=== PATIENT | female | born 1935 | race Caucasian/White ===

== ENCOUNTER 2018-05-09 13:28 | Emergency (ER) | payer MEDICARE, SELFPAY ==
[2018-05-09 13:35] VITALS: BP 134/54; PULSE 85; RESP 15; TEMP 37.3; O2SAT 97; BMI 19.6
--- NOTE | 2018-05-09 13:36 | ED_ITS ---
HPI - Extremity Injury (Lower) <WALDO Diana - Last Filed: 05/09/18 22:16> General Chief Complaint: Extremity Injury, Lower Stated Complaint: POSSIBLE INFECTION OF LEFT LEG Time Seen by Provider: 05/09/18 13:36 Source: patient Mode of arrival: ambulatory Limitations: no limitations History of Present Illness HPI Narrative: 83-year-old female here for complaint of pain and redness to her left knee and her left ankle for the past 3 days. She denies any trauma to the area. She states that the pain started after she went to the grocery store and was walking on them. She denies any shortness of breath no chest pain. She denies any history of having any clots. She reports increased pain with ambulation and weight-bearing. No fevers no chills. She denies any other concerns or complaints at this time. Related Data Home Medications Medication Instructions Recorded Confirmed ASPIRIN (Aspirin Low Dose) 81 mg PO #0 02/19/08 05/09/18 MULTIVITAMIN (Multivitamin 0 PO * DOSE/FREQUENCY #0 02/19/08 05/09/18 -) VITAMIN C - 0 PO * DOSE/FREQUENCY #0 02/19/08 05/09/18 (VITAMIN C) Previous Rx's Medication Instructions Recorded prednisone 40 mg PO DAILY #8 tab 05/09/18 Allergies Allergy/AdvReac Type Severity Reaction Status Date / Time Sulfa (Sulfonamide Allergy Unknown Verified 05/09/18 13:35 Antibiotics) Review of Systems <WALDO Diana - Last Filed: 05/09/18 22:16> Constitutional Denies chills, Denies fever(s), Denies lethargy and Denies weakness Eyes Denies change in vision, Denies eye discharge, Denies irritation and Denies loss of vision ENT Ears, Nose, Mouth, and Throat: Denies change in voice, Denies neck pain and Denies sore throat Cardiovascular Denies chest pain, Denies irregular heart rhythm, Denies lightheadedness, Denies palpitations, Denies dyspnea, Denies dyspnea on exertion and Denies orthopnea Respiratory Denies cough, Denies dyspnea, Denies dyspnea on exertion and Denies wheezing Gastrointestinal Gastrointestinal: Denies abdominal pain, Denies change in bowel habits, Denies diarrhea, Denies nausea and Denies vomiting Genitourinary Denies hematuria, Denies flank pain, Denies urinary incontinence and Denies urinary urgency Musculoskeletal Denies neck pain Comments: Left knee and ankle pain and swelling and redness Integumentary/Breasts Denies pruritus, Denies erythema, Denies rash and Denies wounds Neurologic Denies loss of vision and Denies weakness Endocrine Denies palpitations Allergic/Immunologic Denies wheezing Exam <WALDO Diana - Last Filed: 05/09/18 22:16> Initial Vital Signs Initial Vital Signs: Vital Signs Temperature 99.1 F 05/09/18 13:35 Pulse Rate 85 05/09/18 13:35 Respiratory Rate 15 05/09/18 13:35 Blood Pressure 134/54 H 05/09/18 13:35 Pulse Oximetry 97 05/09/18 13:35 Const General: cooperative and well developed Nutritional Appearance: well nourished Orientation: alert, awake, oriented x3 and not confused HENMT Mouth: oral mucosae normal and moist mucous membranes Eyes Conjunctivae: conjunctivae normal Sclera: sclerae normal Pupils: PERRL EOM: EOM intact bilaterally Resp Effort & Inspection: normal respiratory effort, able to speak in complete sentences, no respiratory distress and no use of accessory muscles Auscultation: clear to auscultation bilaterally, no rales, no rhonchi and no wheezes Cardio Rate: regular rate Rhythm: regular rhythm Heart Sounds: no click, no gallops, no murmurs and no rubs Skin General: no rashes or lesions noted, No jaundice and No petechiae Neuro General: alert, oriented x3, gait normal and no focal motor deficits Speech: speech normal Extrem Other: Swelling to left knee and to left ankle. Slight amount of erythema to the area. Slight amount of warmth on palpation to the left knee and left ankle. Distal sensation is intact. Distal range of motion is intact. Distal pulses are intact. <Lenny Damico DO - Last Filed: 05/10/18 07:16> Initial Vital Signs Initial Vital Signs: Vital Signs Temperature 99.1 F 05/09/18 13:35 Pulse Rate 85 05/09/18 13:35 Respiratory Rate 15 05/09/18 13:35 Blood Pressure 134/54 H 05/09/18 13:35 Pulse Oximetry 97 05/09/18 13:35 Course <WALDO Diana - Last Filed: 05/09/18 22:16> Orders Ordered: ED Orders 05/09/18 14:05 periph venous low extrem lt Stat 05/09/18 14:43 C-Reactive Protein Quant Stat Complete Blood Count AUTO DIFF Stat Comprehensive Metabolic Panel Stat Erythrocyte Sedimentation Rate Stat Procalcitonin Stat Uric Acid Stat Vital Signs - 8 hr 05/09/18 17:05 Pulse Rate 77 Respiratory Rate 20 Blood Pressure 107/76 Pulse Oximetry 98 <Lenny Damico DO - Last Filed: 05/10/18 07:16> Orders Ordered: ED Orders 05/09/18 14:05 periph venous low extrem lt Stat 05/09/18 14:43 C-Reactive Protein Quant Stat Complete Blood Count AUTO DIFF Stat Comprehensive Metabolic Panel Stat Erythrocyte Sedimentation Rate Stat Procalcitonin Stat Uric Acid Stat Vital Signs - 8 hr 05/09/18 17:05 Pulse Rate 77 Respiratory Rate 20 Blood Pressure 107/76 Pulse Oximetry 98 MDM - Extremity Injury (Lower) <WALDO Diana - Last Filed: 05/09/18 22:16> Lab Data Result diagrams: 05/09/18 14:43 05/09/18 14:43 Lab Results 05/09/18 05/09/18 05/09/18 Range/Units 14:43 14:43 14:43 WBC 11.3 H (4.5-11.0) X10^3/uL RBC 3.83 L (4.0-5.2) X10^6/uL Hgb 11.6 L (12.0-16.0) g/dL Hct 34.0 L (36-46) % MCV 88.8 (80-100) fL MCH 30.3 (26-34) PG MCHC 34.1 (30-36) % RDW 13.9 (11.6-14.8) % Plt Count 246 (150-400) X10^3/uL Neut % (Auto) 75.0 (50-75) % Lymph % (Auto) 9.1 L (25-40) % [place] % (Auto) 15.1 H (3-14) % Eos % (Auto) 0.3 L (2-4) % Baso % (Auto) 0.5 (0-2) % Neut # (Auto) 8400 H (5694-2571) /uL ESR 53 H (0-20) MM/HR Sodium 135 L (137-145) mmol/L Potassium 4.3 (3.4-5.1) mmol/L Chloride 99 (98-107) mmol/L Carbon Dioxide 28 (22-32) mmol/L BUN 17 (7-17) mg/dL Creatinine 0.50 L (0.52-1.04) mg/dL Estimated GFR > 60.0 (>60) mL/min BUN/Creatinine Ratio 34.0 H (6-22) Glucose 102 (80-110) mg/dL Uric Acid 3.0 (2.5-6.2) mg/dL Calcium 9.4 (8.4-10.2) mg/dL Total Bilirubin 1.2 (0.2-1.3) mg/dL AST 41 H (14-36) IU/L ALT 45 (9-52) IU/L Alkaline Phosphatase 162 H (38-126) U/L C-Reactive Protein 22.0 H (<1.0) mg/dL Total Protein 6.9 (6.3-8.2) g/dL Albumin 4.0 (3.5-5.0) g/dL Globulin 2.9 (1.7-4.1) g/dL Albumin/Globulin Ratio 1.4 (1.0-2.8) Procalcitonin 0.18 (<0.5) ng/mL Imaging Data Venous US: Radiologist's impression: PROCEDURE: US PERIPH VENOUS LOW EXTREM LT INDICATIONS: Redness and swelling to left ankle and knee TECHNIQUE: Real-time imaging, as well as color and pulse Doppler interrogation, were performed of the lower extremity deep veins from the inguinal ligament to the popliteal fossa. COMPARISON: None. FINDINGS: The deep veins are normally compressible, and free of intraluminal thrombus. Color and pulse Doppler demonstrate normal phasic intraluminal flow. There is normal augmentation response to distal compression maneuver. IMPRESSION: 1. Negative for DVT. 2. Small Chamberlain's cyst measuring 1.7 x 3.1 x 3.9 cm. Dictated by: Michael Fitzpatrick M.D. on 05/09/2018 at 15:25 Approved by: Michael Fitzpatrick M.D. on 05/09/2018 at 15:26 [facility] Narrative Medical decision making narrative: Ultrasound the left lower extremity was obtained was negative for any DVTs. CRP and ESR were elevated. White count was slightly elevated. Uric acid was obtained was negative. Procalcitonin was obtained was negative. Laboratory results show mild anemia otherwise are unremarkable. Orthopedics Dr. downs was called he evaluated patient does not believe that patient is infectious at this point and that this is a arthritic exacerbation. [id number] Tylenol or Motrin as needed for any discomfort. She is placed on a short course of prednisone for anti-inflammatory effects. Follow up with primary care provider next week. For any worsening symptoms return to the emergency room. <Lenny Damico, DO - Last Filed: 05/10/18 07:16> Lab Data Lab Results 05/09/18 05/09/18 05/09/18 Range/Units 14:43 14:43 14:43 WBC 11.3 H (4.5-11.0) X10^3/uL RBC 3.83 L (4.0-5.2) X10^6/uL Hgb 11.6 L (12.0-16.0) g/dL Hct 34.0 L (36-46) % MCV 88.8 (80-100) fL MCH 30.3 (26-34) PG MCHC 34.1 (30-36) % RDW 13.9 (11.6-14.8) % Plt Count 246 (150-400) X10^3/uL Neut % (Auto) 75.0 (50-75) % Lymph % (Auto) 9.1 L (25-40) % [place] % (Auto) 15.1 H (3-14) % Eos % (Auto) 0.3 L (2-4) % Baso % (Auto) 0.5 (0-2) % Neut # (Auto) 8400 H (3815-3259) /uL ESR 53 H (0-20) MM/HR Sodium 135 L (137-145) mmol/L Potassium 4.3 (3.4-5.1) mmol/L Chloride 99 (98-107) mmol/L Carbon Dioxide 28 (22-32) mmol/L BUN 17 (7-17) mg/dL Creatinine 0.50 L (0.52-1.04) mg/dL Estimated GFR > 60.0 (>60) mL/min BUN/Creatinine Ratio 34.0 H (6-22) Glucose 102 (80-110) mg/dL Uric Acid 3.0 (2.5-6.2) mg/dL Calcium 9.4 (8.4-10.2) mg/dL Total Bilirubin 1.2 (0.2-1.3) mg/dL AST 41 H (14-36) IU/L ALT 45 (9-52) IU/L Alkaline Phosphatase 162 H (38-126) U/L C-Reactive Protein 22.0 H (<1.0) mg/dL Total Protein 6.9 (6.3-8.2) g/dL Albumin 4.0 (3.5-5.0) g/dL Globulin 2.9 (1.7-4.1) g/dL Albumin/Globulin Ratio 1.4 (1.0-2.8) Procalcitonin 0.18 (<0.5) ng/mL Discharge Plan Departure Patient Disposition: Home Clinical Impression: Pain in left knee, Acute left ankle pain Discharge Date/Time: 05/09/18 17:06 Interventions: ED Discharge Assessment Last Done: 05/09/18 17:05 Instructions: DI for Osteoarthritis Activity Restrictions/Additional Instructions: Laboratory results show mild anemia. Ultrasound of the left lower extremity was obtained was negative for clot. Signs and symptoms present as arthritic inflammation into the left knee and left ankle. You are placed on a short course of prednisone for anti-inflammatory affects use as directed. Follow up with primary care provider next week for further evaluation of pain into the left knee and ankle and also for anemia. For any worsening symptoms return to the emergency room. Prescriptions: New prednisone 20 mg tablet 40 mg PO DAILY Qty: 8 RF: 0 No Action ASPIRIN (Aspirin Low Dose) 81 mg PO Qty: 0 RF: 0 MULTIVITAMIN (Multivitamin -) PO * [place] DOSE/FREQUENCY Qty: 0 RF: 0 VITAMIN C - (VITAMIN C) PO * [place] DOSE/FREQUENCY Qty: 0 RF: 0 Referrals: Whitney Geiger PA-C [Primary Care Provider] - <Lenny Damico DO - Last Filed: 05/10/18 07:16> Cosign ED Attending Nilda Attestation: I was available for consultation during this patient's emergency department encounter
--- NOTE | 2018-05-09 14:05 | DI.US.S_ITS ---
PROCEDURE: US PERIPH VENOUS LOW EXTREM LT INDICATIONS: Redness and swelling to left ankle and knee TECHNIQUE: Real-time imaging, as well as color and pulse Doppler interrogation, were performed of the lower extremity deep veins from the inguinal ligament to the popliteal fossa. COMPARISON: None. FINDINGS: The deep veins are normally compressible, and free of intraluminal thrombus. Color and pulse Doppler demonstrate normal phasic intraluminal flow. There is normal augmentation response to distal compression maneuver. IMPRESSION: 1. Negative for DVT. 2. Small Chamberlain's cyst measuring 1.7 x 3.1 x 3.9 cm. Dictated by: Michael Fitzpatrick M.D. on 05/09/2018 at 15:25 Approved by: Michael Fitzpatrick M.D. on 05/09/2018 at 15:26
[2018-05-09 14:55] LABS: Add Manual Diff / Slide Review NO; Basophils Percent Auto 0.5 % (0-2); Eosinophils Percent Auto 0.3 % (2-4); Hemoglobin 11.6 g/dL (12.0-16.0); Lymphocytes Percent Auto 9.1 % (25-40); Mean Corpuscular HGB Conc 34.1 % (30-36); Mean Corpuscular Hemoglobin 30.3 PG (26-34); Mean Corpuscular Volume 88.8 fL (80-100); Monocytes Percent Auto 15.1 % (3-14); Neutrophils Absolute Auto 8400 /uL (3000-5900); Platelet Count 246 X10^3/uL (150-400); Red Blood Cell Count 3.83 X10^6/uL (4.0-5.2); Red Cell Distribution Width 13.9 % (11.6-14.8); White Blood Cell Count 11.3 X10^3/uL (4.5-11.0)
[2018-05-09 15:12] LABS: Alanine Aminotransferase 45 IU/L (9-52); Albumin Globulin Ratio 1.4 (1.0-2.8); Alkaline Phosphatase 162 U/L (38-126); Aspartate Aminotransferase 41 IU/L (14-36); Bilirubin Total 1.2 mg/dL (0.2-1.3); Blood Urea Nitrogen 17 mg/dL (7-17); Calcium 9.4 mg/dL (8.4-10.2); Carbon Dioxide 28 mmol/L (22-32); Chloride 99 mmol/L (98-107); Estimated Glomerular Filt Rate > 60.0 mL/min (>60); Globulin 2.9 g/dL (1.7-4.1); Glucose 102 mg/dL (80-110); HEMOLYSIS < 15 (0-50); Potassium 4.3 mmol/L (3.4-5.1); Sodium 135 mmol/L (137-145); Total Protein 6.9 g/dL (6.3-8.2)
[2018-05-09 15:16] LABS: Erythrocyte Sedimentation Rate 53 MM/HR (0-20)
[2018-05-09 15:25] LABS: Procalcitonin 0.18 ng/mL (<0.5)
[2018-05-09 17:05] VITALS: BP 107/76; PULSE 77; RESP 20; O2SAT 98
--- NOTE | 2018-05-09 18:53 | P.CONS_ITS ---
History of Present Illness Date Patient Seen: 05/09/18 Time Patient Seen: 17:30 Chief complaint: POSSIBLE INFECTION OF LEFT LEG Reason for consult: Left knee and ankle pain Requesting provider: Robert Brown Narrative: 83-year-old female presented with four-day progressive pain in the left knee and ankle. She came to urgent care today because it was swollen and so painful she could not walk on it. She denies any trauma. No recent fever or infections. She was seen at urgent care and transferred to the emergency room. As she has been laying on a stretcher all day, at this point she reports that the swelling is much better and the pain in the knee is much better as well as the ankle. However, it still hurts to move the ankle or to walk on it. [facility] Medical History Osteoarthritis (Acute) Social History Smoking Status: Never smoker Meds Home Medications Medication Instructions Recorded Confirmed Type ASPIRIN (Aspirin Low Dose) 81 mg PO #0 /12/2305/09/18 History MULTIVITAMIN (Multivitamin 0 PO * [place] DOSE/FREQUENCY #0 02/19/08 05/09/18 History -) VITAMIN C - 0 PO * [place] DOSE/FREQUENCY #0 02/19/08 05/09/18 History (VITAMIN C) prednisone 40 mg PO DAILY #8 tab 05/09/18 Rx Allergies Allergy/AdvReac Type Severity Reaction Status Date / Time Sulfa (Sulfonamide Allergy Unknown Verified 05/09/18 13:35 Antibiotics) Review of Systems Constitutional Constitutional: Denies chills, Denies excessive sweating and Denies fever(s) Respiratory Respiratory: Denies cough Gastrointestinal Comments: no diarrhea Genitourinary Comments: no urinary pain Musculoskeletal Musculoskeletal: Reports system reviewed; no additional complaints, except as documented Neurologic Neurologic: Denies confusion Psychiatric Psychiatric: Denies confusion Endocrine Endocrine: Denies excessive sweating Hematologic/Lymphatic Hematologic/Lymphatic: Denies easy bleeding Exam Vital Signs (past 8 hours): - 05/09/18 13:35 05/09/18 17:05 Temperature 99.1 F Pulse Rate 85 77 Respiratory Rate 15 20 Blood Pressure 134/54 H 107/76 Pulse Oximetry 97 98 Oxygen Delivery Method Room Air Const Orientation: alert and oriented x3 Extrem Other: Left knee-no erythema or induration. Moderate swelling over the medial joint line. Tender over the medial joint line, nontender lateral joint line. 45 degree comfortable range of motion. Left ankle-minimal erythema and swelling over the dorsum of the foot. Able to go through a slow 30 degree range of motion of the ankle without difficulty. Tender over the tibiotalar joint. 1+ distal pulse easily wiggles toes. Objective Labs Result Diagrams: 05/09/18 14:43 05/09/18 14:43 Labs: Laboratory Results - last 24 hr 05/09/18 05/09/18 05/09/18 14:43 14:43 14:43 WBC 11.3 H RBC 3.83 L Hgb 11.6 L Hct 34.0 L MCV 88.8 MCH 30.3 MCHC 34.1 RDW 13.9 Plt Count 246 Neut % (Auto) 75.0 Lymph % (Auto) 9.1 L [place] % (Auto) 15.1 H Eos % (Auto) 0.3 L Baso % (Auto) 0.5 Neut # (Auto) 8400 H ESR 53 H Sodium 135 L Potassium 4.3 Chloride 99 Carbon Dioxide 28 BUN 17 Creatinine 0.50 L Estimated GFR > 60.0 BUN/Creatinine Ratio 34.0 H Glucose 102 Uric Acid 3.0 Calcium 9.4 Total Bilirubin 1.2 AST 41 H ALT 45 Alkaline Phosphatase 162 H C-Reactive Protein 22.0 H Total Protein 6.9 Albumin 4.0 Globulin 2.9 Albumin/Globulin Ratio 1.4 Procalcitonin 0.18 Assessment & Plan Plan: Assessment/Plan Narrative: Her CRP and sedimentation rate are elevated but her procalcitonin is normal. She has comfortable range of motion of both joints and no significant erythema or swelling. I am doubtful this is a septic joint, I am more concerned with degenerative arthritis. However, I thought it would be prudent to try to aspirate both her ankle and knee joint to see if there is any fluid that could be sent off. Procedure 1, under sterile conditions, a 22 gauge needle was inserted through the medial joint line into the knee joint. This was a dry aspirate. Procedure 2, under sterile conditions, a 22 gauge needle was inserted in the anteromedial ankle joint. This also was a dry aspirate. As she had dry aspirates and clinically does not really appear to have an infected joint, I think this is more of an arthritic flare up and recommended placing her on prednisone for now. She will return if she develops fever or increasing pain or swelling.
== END 2018-05-09 17:06 | disposition home or self-care (01) ==
PROVIDERS: Emergency Provider Nurse Practitioner Family; Family Provider Physician Assistant Medical; PCP Physician Assistant Medical
DX: M25.562 Pain in left knee (principal); M25.572 Pain in left ankle and joints of left foot
CPT/HCPCS: 36415; 80053; 84145; 84550; 85025; 85651; 86140; 93971; 99282; 99284

== ENCOUNTER → 2020-12-23 13:03 | Outpatient (CLI) | payer MEDICARE, SELFPAY ==
[2020-12-23] MEDS: COVID-19 VACC, Ad26(JANSSEN)/PF 0.5 ML IM (13:11)
== END ==
PROVIDERS: Family Provider Physician Assistant Medical; PCP Physician Assistant Medical; Visit Provider Internal Medicine
DX: Z23 Encounter for immunization (principal)
CPT/HCPCS: 0031A; 91303

== ENCOUNTER 2022-11-07 18:31 | Inpatient (IN) | payer MEDICARE, SELFPAY ==
[2022-11-07] VITALS (15 sets, daily range): BP systolic 109–138; BP diastolic 56–74; PULSE 85–94; RESP 20; TEMP 36.6–37.6; O2SAT 96–98; BMI 20.7
--- NOTE | 2022-11-07 18:45 | DI.RAD.S_ITS ---
PROCEDURE: XR CHEST 1V INDICATIONS: suspected sepsis TECHNIQUE: One view of the chest was acquired. COMPARISON: None. FINDINGS: Surgical changes and devices: None. Lungs and pleura: Lungs are clear. No pleural effusions or pneumothorax. Mediastinum: Mediastinal contours appear normal. Heart size is normal. Bones and chest wall: Rightward curvature of the thoracic spine. No suspicious bony lesions. Overlying soft tissues appear unremarkable. IMPRESSION: No acute cardiopulmonary abnormality. Dictated by: Romero Downs M.D. on 11/07/2022 at 19:34 Approved by: Romero Downs M.D. on 11/07/2022 at 19:35
--- NOTE | 2022-11-07 18:50 | DI.CT.S_ITS ---
PROCEDURE: CT HEAD/BRAIN WO CON INDICATIONS: altered mental status TECHNIQUE: Noncontrast 4.5 mm thick angled axial sections acquired from the foramen magnum to the vertex, with coronal and sagittal reformats. For radiation dose reduction, the following was used: automated exposure control, adjustment of mA and/or kV according to patient size. COMPARISON: None. FINDINGS: Image quality: Excellent. CSF spaces: Basal cisterns are patent. No extra-axial fluid collections. The ventricles are symmetric in size and shape. Brain: No intracranial bleeds or masses. There is cerebral volume loss for age, with resultant ventricular and sulcal prominence. There are periventricular and deep white matter chronic small vessel ischemic changes. There is intracranial internal carotid artery atherosclerosis. There is a cortical hypodensity in the right parietal a simple lobe consistent with watershed infarction between the right MCA and [employer] territory. Skull and face: Calvarium and visualized facial bones appear intact, without suspicious lesions. Sinuses: Visualized sinuses and mastoids are clear. IMPRESSION: 1. 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 2. Diffuse atrophy and microvascular ischemic disease. Findings were discussed with Dr. Damico. Dictated by: Romero Downs M.D. on 11/07/2022 at 19:35 Approved by: Romero Downs M.D. on 11/07/2022 at 19:40
[2022-11-07 19:07] LABS: Add Manual Diff / Slide Review NO; Basophils Absolute Auto 0 /uL (0-100); Basophils Percent Auto 0.2 % (0-2); Eosinophils Absolute Auto 0 /uL (0-450); Hemoglobin 12.8 g/dL (12.0-16.0); Lymphocytes Absolute Auto 700 /uL (1100-4500); Lymphocytes Percent Auto 4.4 % (25-40); Mean Corpuscular HGB Conc 32.7 % (30-36); Mean Corpuscular Hemoglobin 28.8 PG (26-34); Monocytes Absolute Auto 2000 /uL (0-900); Monocytes Percent Auto 11.7 % (3-14); Neutrophils Absolute Auto 14300 /uL (1500-7000); Neutrophils Percent Auto 83.7 % (50-75); Platelet Count 330 X10^3/uL (150-400); Red Blood Cell Count 4.43 X10^6/uL (4.0-5.2); Red Cell Distribution Width 14.6 % (11.6-14.8); White Blood Cell Count 17.1 X10^3/uL (4.5-11.0)
[2022-11-07 19:17] LABS: Alanine Aminotransferase 26 IU/L (<35); Albumin 4.2 g/dL (3.5-5.0); Albumin Globulin Ratio 1.5 (1.0-2.8); Alkaline Phosphatase 127 U/L (38-126); Aspartate Aminotransferase 50 IU/L (14-36); BUN Creatinine Ratio 39.2 (6-22); Bilirubin Total 1.2 mg/dL (0.2-1.3); Blood Urea Nitrogen 20 mg/dL (7-17); Carbon Dioxide 23 mmol/L (22-32); Chloride 105 mmol/L (98-107); Estimated Glomerular Filt Rate > 60 mL/min (>60); Globulin 2.8 g/dL (1.7-4.1); Glucose 134 mg/dL (80-110); HEMOLYSIS < 15 (0-50); Lipase 60 U/L (23-300); Potassium 3.7 mmol/L (3.4-5.1); Sodium 136 mmol/L (137-145)
[2022-11-07 19:18] LABS: Lactate (Lactic Acid) 1.5 mmol/L (0.7-2.1)
--- NOTE | 2022-11-07 19:55 | ED.FALL ---
HPI - Fall General Chief Complaint: Fall Stated Complaint: Found on floor, possible fall, back pain Time Seen by Provider: 11/07/22 18:37 Source: patient and EMS Mode of arrival: EMS Limitations: altered mental status History of Present Illness HPI Narrative: Patient is an 87-year-old female who arrives by EMS for evaluation of altered mental status, being found on the floor. We are unable to determine when her last known normal was. It was reported that friends who check on her often came over to her house and found her lying on the floor. This was after she did not arrived to a jew function. To me the patient reports no specific complaints. She reports no neck pain no back pain no arm leg hip abdominal pain or headache. According to her home medication list in the EMR patient is not on blood thinners. There is no signs of trauma. Reports from nursing staff that they were told that the patient potentially has had a rectal prolapse and also a bladder/uterine prolapse. It is reported that there was a concern for urinary tract infection per nursing staff. Was also reported that the patient at baseline lives on her own and can take care of herself so her mental status upon presentation is a change. Related Data Home Medications Medication Instructions Recorded Confirmed ASPIRIN (Aspirin Low Dose) 81 mg PO ##0 02/19/08 05/09/18 MULTIVITAMIN (Multivitamin 0 PO * DOSE/FREQUENCY ##0 02/19/08 05/09/18 -) VITAMIN C - 0 PO * DOSE/FREQUENCY ##0 02/19/08 05/09/18 (VITAMIN C) Previous Rx's Medication Instructions Recorded prednisone 20 mg tablet 40 mg PO DAILY #8 tabs 05/09/18 Allergies Allergy/AdvReac Type Severity Reaction Status Date / Time Sulfa (Sulfonamide Allergy Unknown Verified 05/09/18 13:35 Antibiotics) Review of Systems Review of Systems Narrative: Patient denies chest pain, headache, shortness of breath, abdominal pain, nausea vomiting, urinary symptoms, skin rashes. Patient History Medical History History of chronic urinary tract infection History of cystocele History of uterine prolapse Osteoarthritis Urinary incontinence concurrent with and due to female genital prolapse Surgical History (Updated 11/08/22 @ 00:11 by AYAAN Harry) History of hysterectomy Social History Smoking Status: Never smoker Smoking Status: Never smoker Exam Initial Vital Signs Initial Vital Signs: Vital Signs Pulse Rate 90 11/07/22 18:36 Pulse Oximetry 98 11/07/22 18:36 Const General: comfortable and No ill appearing HENMT Head: normal to inspection and normocephalic Eyes Pupils: PERRL Other: Patient can overcome and look to the left but has obvious difficulty. Resp Effort & Inspection: normal respiratory effort Auscultation: clear to auscultation bilaterally Cardio Rate: regular rate Rhythm: regular rhythm GI Inspection: normal to inspection Skin General: no rashes or lesions noted Neuro Other: Patient is alert to person and place and date but does not know the ear and obviously has confusion about why she is here. Does not remember falling. Patient has no dysarthria. No aphasia. [id number] with right and left upper extremities is unremarkable. No drift with the upper extremities. No weakness with lower extremities and heel to hernandez is unremarkable. Patient has obvious difficulty with looking to the left. Extrem General: normal to inspection and capillary refill normal Psych Appearance: grossly normal and well kempt Scores GCS [place] coma scale eye opening: Spontaneous [place] coma scale verbal response: Confused Jennifer coma scale motor response: Obey commands [place] coma scale total score: 14 NIH Stroke Scale Level of Conciousness: Alert, keenly responsive Ask month/age: Answers one question correctly, intubated follow commands Open/close eyes, close hand: Performs both tasks correctly Best gaze horizontal: Partial gaze palsy, can be overcome by finger tracking, head turning Visual billingsley: Partial hemianopia (Although I am not convinced patient knew what I was asking her to do) Facial palsy: Normal symetrical movement Left arm drift: No drift for full 10 sec Right arm drift: No drift for full 10 sec Left leg drift: No drift for full 5 sec Right leg drift: No drift for full 5 sec Limb ataxia: Absent Sensory on face/arms/legs: Normal, no sensory loss Best language: No aphasia, normal Dysarthria: Normal Extinction or inattention: No abnormality Total NIH Stroke scale score: 3 Course Orders Ordered: ED Orders 11/07/22 18:45 XR chest 1V Stat EKG-12 Lead Stat RT Consult Eval and Treat NOW 11/07/22 18:50 CT head/brain wo con Stat Complete Blood Count AUTO DIFF Stat Comprehensive Metabolic Panel Stat Lactate (Lactic Acid) Stat Lipase Stat Procalcitonin Stat 11/07/22 19:26 COVID19 -Nasal RAPID/Pre-Proc Stat Urinalysis and Microscopic Stat Urine Culture Stat 11/07/22 19:40 Blood Culture Stat Acetaminophen (Acetaminophen 325 Mg Tablet) 650 mg PO Q6H PRN PRN Reason: Fever/Mild Pain (1-3) Al Hydrox/Mg Hydrox/Simethicone (Mag Hydrox/Alum/Simeth 30 Ml Udc) 30 ml PO Q6HR PRN PRN Reason: Dyspepsia Atorvastatin Calcium (Atorvastatin 20 Mg Tablet) 20 mg PO BEDTIME [facility] Last Admin: 11/07/22 22:37 Dose: Not Given Documented By: BS Calcium Carbonate (Calcium Carbonate 500 Mg Tab) 1,000 mg PO Q4HR PRN PRN Reason: Dyspepsia Sodium Chloride (Normal Saline 0.9%) 1,000 mls @ 60 mls/hr IV CONT [facility] Last Admin: 11/07/22 22:30 Dose: 60 mls/hr Documented By: DIALLO Naloxone HCl (Naloxone 0.4 Mg/Ml Vial) 0.2 mg IV Q2MIN PRN PRN Reason: Opiate Reversal Ondansetron HCl (Ondansetron 4 Mg/2 Ml Inj) 4 mg IV Q8HR PRN PRN Reason: Nausea And Vomiting Sennosides (Sennosides 8.6 Mg Tablet) 17.2 mg PO BEDTIME [facility] Last Admin: 11/07/22 22:37 Dose: Not Given Documented By: DIALLO Discontinued Medications Sodium Chloride (Normal Saline 0.9%) 1,000 mls @ 1,000 mls/hr IV BOLUS ONE Stop: 11/07/22 19:44 Last Infusion: 11/07/22 21:36 Dose: 0 mls/hr Documented By: Admin: 11/07/22 20:01 Dose: 1,000 mls/hr Documented By: DIALLO Ceftriaxone Sodium 1,000 mg/ (Sodium Chloride) 100 mls @ 200 mls/hr IV NOW ONE Stop: 11/07/22 19:12 Last Infusion: 11/07/22 21:36 Dose: 0 mls/hr Documented By: Admin: 11/07/22 20:01 Dose: 200 mls/hr Documented By: DIALLO Ceftriaxone Sodium 1,000 mg/ (Sodium Chloride) 100 mls @ 200 mls/hr IV NOW ONE Stop: 11/07/22 21:37 Last Infusion: 11/07/22 23:04 Dose: 0 mls/hr Documented By: Admin: 11/07/22 22:10 Dose: 200 mls/hr Documented By: DIALLO Vital Signs Vital signs: Vital Signs - 8 hr 11/07/22 19:08 11/07/22 18:36 11/07/22 18:37 Temperature 98 F Pulse Rate 90 90 91 H Respiratory Rate 20 Blood Pressure 126/74 Pulse Oximetry 98 98 96 Oxygen Delivery Method Room Air 11/07/22 18:37 11/07/22 19:04 11/07/22 19:37 Temperature Pulse Rate 85 89 Respiratory Rate Blood Pressure 126/74 Pulse Oximetry 96 98 Oxygen Delivery Method Room Air 11/07/22 19:41 11/07/22 19:41 11/07/22 20:00 Temperature Pulse Rate 87 86 Respiratory Rate Blood Pressure 138/68 Pulse Oximetry 98 98 Oxygen Delivery Method MDM - Fall Lab Data Attestation: I reviewed the patient's lab results. 11/07/22 18:50 11/07/22 18:50 Labs: Lab Results 11/07/22 11/07/22 11/07/22 Range/Units 18:50 18:50 18:50 WBC 17.1 H (4.5-11.0) X10^3/uL RBC 4.43 (4.0-5.2) X10^6/uL Hgb 12.8 (12.0-16.0) g/dL Hct 39.0 (36-46) % MCV 88.0 (80-100) fL MCH 28.8 (26-34) PG MCHC 32.7 (30-36) % RDW 14.6 (11.6-14.8) % Plt Count 330 (150-400) X10^3/uL Neut % (Auto) 83.7 H (50-75) % Lymph % (Auto) 4.4 L (25-40) % [place] % (Auto) 11.7 (3-14) % Eos % (Auto) 0.0 L (2-4) % Baso % (Auto) 0.2 (0-2) % Neut # (Auto) 55229 H (3884-2895) /uL Lymph # (Auto) 700 L (8542-9013) /uL [place] # (Auto) 2000 H (0-900) /uL Eos # (Auto) 0 (0-450) /uL Baso # (Auto) 0 (0-100) /uL Sodium 136 L (137-145) mmol/L Potassium 3.7 (3.4-5.1) mmol/L Chloride 105 (98-107) mmol/L Carbon Dioxide 23 (22-32) mmol/L BUN 20 H (7-17) mg/dL Creatinine 0.51 L (0.52-1.04) mg/dL Estimated GFR > 60 (>60) mL/min BUN/Creatinine Ratio 39.2 H (6-22) Glucose 134 H (80-110) mg/dL Hemoglobin A1c (4.0-6.0) % Lactate 1.5 (0.7-2.1) mmol/L Calcium 9.0 (8.4-10.2) mg/dL Magnesium (1.6-2.3) mg/dL Total Bilirubin 1.2 (0.2-1.3) mg/dL AST 50 H (14-36) IU/L ALT 26 (<35) IU/L Alkaline Phosphatase 127 H (38-126) U/L Troponin I (0.01-0.034) ng/mL NT-Pro-B Natriuret Pep (<450) pg/mL Total Protein 7.0 (6.3-8.2) g/dL Albumin 4.2 (3.5-5.0) g/dL Globulin 2.8 (1.7-4.1) g/dL Albumin/Globulin Ratio 1.5 (1.0-2.8) Lipase 60 (23-300) U/L Procalcitonin 0.10 (<0.5) ng/mL TSH (0.47-4.68) uIU/mL Urine Color Urine Appearance Urine pH (4.5-8.0) Ur Specific Hend[place] (1.000-1.035) Urine Protein (Negative) Urine Glucose (UA) (Negative) g/dL Urine Ketones (NEGATIVE) Urine Occult Blood (Negative) Urine Nitrate (Negative) Urine Bilirubin (NEGATIVE) Urine Urobilinogen (0.2) E.U./dL Ur Leukocyte Esterase (NEGATIVE) Urine RBC (0-5/HPF) Urine WBC (0-5/HPF) Ur Squamous Epith Cells (0-5/HPF) Amorphous Sediment Urine Bacteria (None) Urine Mucus (Negative) SARS-CoV-2 (PCR) (Negative) 11/07/22 11/07/22 11/07/22 Range/Units 18:50 18:50 18:50 WBC (4.5-11.0) X10^3/uL RBC (4.0-5.2) X10^6/uL Hgb (12.0-16.0) g/dL Hct (36-46) % MCV (80-100) fL MCH (26-34) PG MCHC (30-36) % RDW (11.6-14.8) % Plt Count (150-400) X10^3/uL Neut % (Auto) (50-75) % Lymph % (Auto) (25-40) % [place] % (Auto) (3-14) % Eos % (Auto) (2-4) % Baso % (Auto) (0-2) % Neut # (Auto) (9372-5959) /uL Lymph # (Auto) (3003-2886) /uL School[place] # (Auto) (0-900) /uL Eos # (Auto) (0-450) /uL Baso # (Auto) (0-100) /uL Sodium (137-145) mmol/L Potassium (3.4-5.1) mmol/L Chloride (98-107) mmol/L Carbon Dioxide (22-32) mmol/L BUN (7-17) mg/dL Creatinine (0.52-1.04) mg/dL Estimated GFR (>60) mL/min BUN/Creatinine Ratio (6-22) Glucose (80-110) mg/dL Hemoglobin A1c 5.4 (4.0-6.0) % Lactate (0.7-2.1) mmol/L Calcium (8.4-10.2) mg/dL Magnesium 2.1 (1.6-2.3) mg/dL Total Bilirubin (0.2-1.3) mg/dL AST (14-36) IU/L ALT (<35) IU/L Alkaline Phosphatase (38-126) U/L Troponin I (0.01-0.034) ng/mL NT-Pro-B Natriuret Pep 369 (<450) pg/mL Total Protein (6.3-8.2) g/dL Albumin (3.5-5.0) g/dL Globulin (1.7-4.1) g/dL Albumin/Globulin Ratio (1.0-2.8) Lipase (23-300) U/L Procalcitonin (<0.5) ng/mL TSH (0.47-4.68) uIU/mL Urine Color Urine Appearance Urine pH (4.5-8.0) Ur Specific [place] (1.000-1.035) Urine Protein (Negative) Urine Glucose (UA) (Negative) g/dL Urine Ketones (NEGATIVE) Urine Occult Blood (Negative) Urine Nitrate (Negative) Urine Bilirubin (NEGATIVE) Urine Urobilinogen (0.2) E.U./dL Ur Leukocyte Esterase (NEGATIVE) Urine RBC (0-5/HPF) Urine WBC (0-5/HPF) Ur Squamous Epith Cells (0-5/HPF) Amorphous Sediment Urine Bacteria (None) Urine Mucus (Negative) SARS-CoV-2 (PCR) (Negative) 11/07/22 11/07/22 11/07/22 Range/Units 18:50 18:50 19:26 WBC (4.5-11.0) X10^3/uL RBC (4.0-5.2) X10^6/uL Hgb (12.0-16.0) g/dL Hct (36-46) % MCV (80-100) fL MCH (26-34) PG MCHC (30-36) % RDW (11.6-14.8) % Plt Count (150-400) X10^3/uL Neut % (Auto) (50-75) % Lymph % (Auto) (25-40) % [place] % (Auto) (3-14) % Eos % (Auto) (2-4) % Baso % (Auto) (0-2) % Neut # (Auto) (9253-2396) /uL Lymph # (Auto) (6162-7970) /uL [place] # (Auto) (0-900) /uL Eos # (Auto) (0-450) /uL Baso # (Auto) (0-100) /uL Sodium (137-145) mmol/L Potassium (3.4-5.1) mmol/L Chloride (98-107) mmol/L Carbon Dioxide (22-32) mmol/L BUN (7-17) mg/dL Creatinine (0.52-1.04) mg/dL Estimated GFR (>60) mL/min BUN/Creatinine Ratio (6-22) Glucose (80-110) mg/dL Hemoglobin A1c (4.0-6.0) % Lactate (0.7-2.1) mmol/L Calcium (8.4-10.2) mg/dL Magnesium (1.6-2.3) mg/dL Total Bilirubin (0.2-1.3) mg/dL AST (14-36) IU/L ALT (<35) IU/L Alkaline Phosphatase (38-126) U/L Troponin I 0.019 (0.01-0.034) ng/mL NT-Pro-B Natriuret Pep (<450) pg/mL Total Protein (6.3-8.2) g/dL Albumin (3.5-5.0) g/dL Globulin (1.7-4.1) g/dL Albumin/Globulin Ratio (1.0-2.8) Lipase (23-300) U/L Procalcitonin (<0.5) ng/mL TSH 2.13 (0.47-4.68) uIU/mL Urine Color Urine Appearance Urine pH (4.5-8.0) Ur Specific [place] (1.000-1.035) Urine Protein (Negative) Urine Glucose (UA) (Negative) g/dL Urine Ketones (NEGATIVE) Urine Occult Blood (Negative) Urine Nitrate (Negative) Urine Bilirubin (NEGATIVE) Urine Urobilinogen (0.2) E.U./dL Ur Leukocyte Esterase (NEGATIVE) Urine RBC (0-5/HPF) Urine WBC (0-5/HPF) Ur Squamous Epith Cells (0-5/HPF) Amorphous Sediment Urine Bacteria (None) Urine Mucus (Negative) SARS-CoV-2 (PCR) Negative (Negative) 11/07/22 Range/Units 19:26 WBC (4.5-11.0) X10^3/uL RBC (4.0-5.2) X10^6/uL Hgb (12.0-16.0) g/dL Hct (36-46) % MCV (80-100) fL MCH (26-34) PG MCHC (30-36) % RDW (11.6-14.8) % Plt Count (150-400) X10^3/uL Neut % (Auto) (50-75) % Lymph % (Auto) (25-40) % [place] % (Auto) (3-14) % Eos % (Auto) (2-4) % Baso % (Auto) (0-2) % Neut # (Auto) (9831-4278) /uL Lymph # (Auto) (5730-7620) /uL [place] # (Auto) (0-900) /uL Eos # (Auto) (0-450) /uL Baso # (Auto) (0-100) /uL Sodium (137-145) mmol/L Potassium (3.4-5.1) mmol/L Chloride (98-107) mmol/L Carbon Dioxide (22-32) mmol/L BUN (7-17) mg/dL Creatinine (0.52-1.04) mg/dL Estimated GFR (>60) mL/min BUN/Creatinine Ratio (6-22) Glucose (80-110) mg/dL Hemoglobin A1c (4.0-6.0) % Lactate (0.7-2.1) mmol/L Calcium (8.4-10.2) mg/dL Magnesium (1.6-2.3) mg/dL Total Bilirubin (0.2-1.3) mg/dL AST (14-36) IU/L ALT (<35) IU/L Alkaline Phosphatase (38-126) U/L Troponin I (0.01-0.034) ng/mL NT-Pro-B Natriuret Pep (<450) pg/mL Total Protein (6.3-8.2) g/dL Albumin (3.5-5.0) g/dL Globulin (1.7-4.1) g/dL Albumin/Globulin Ratio (1.0-2.8) Lipase (23-300) U/L Procalcitonin (<0.5) ng/mL TSH (0.47-4.68) uIU/mL Urine Color Yellow Urine Appearance Turbid Urine pH 8.0 (4.5-8.0) Ur Specific [place] 1.020 (1.000-1.035) Urine Protein 3+ H (Negative) Urine Glucose (UA) Negative (Negative) g/dL Urine Ketones 2+ H (NEGATIVE) Urine Occult Blood 1+ H (Negative) Urine Nitrate Negative (Negative) Urine Bilirubin Negative (NEGATIVE) Urine Urobilinogen 0.2 (0.2) E.U./dL Ur Leukocyte Esterase 3+ H (NEGATIVE) Urine RBC 5-10/hpf H (0-5/HPF) Urine WBC >100/hpf H (0-5/HPF) Ur Squamous Epith Cells 5-10 /hpf H (0-5/HPF) Amorphous Sediment 2+ Urine Bacteria Many (>30) H (None) Urine Mucus 4+ H (Negative) SARS-CoV-2 (PCR) (Negative) Imaging Data CT scan - head: Radiologist's Impression: Right-sided CVA ECG Data Interpretation: Sinus rhythm Ventricular rate [address] T wave changes MDM Narrative Medical decision making narrative: Patient is obviously having problems with looking to the left and has difficulty reading the left sides of the sentences although it can be overcome with looking to the left and turning her head. I am not convinced that she knew what I was asking when I was checking her visual billingsley but I am concerned about a left-sided visual field loss. CTA does show right-sided CVA. Patient not a candidate for tPA. Not a candidate for intervention as we do not know her last known well. Does not appear that the patient is on anticoagulation. She is obviously confused about the events that brought her here to the emergency department. There was initial concern about a urinary tract infection. She does have leukocytosis but this could also be because of her CVA. She was given antibiotics and cultures were obtained prior to the results of the CT scan. No indication for 30 cc/kilogram of fluid given her presentation. Patient does require admission to the hospital. Discussed the case with AMI Concepcion the [facility] provider who will admit for further evaluation and treatment. I did discuss this with the patient as well. She stated that she did understand what I was telling her about having a stroke and needing admitted to the hospital. Discharge Plan Departure Patient Disposition: Admitted As Inpatient Clinical Impression: CVA (cerebral vascular accident), Altered mental status Admit Date/Time: 11/07/22 20:14 Admit Provider: Lana Concepcion
[2022-11-07] MEDS: SODIUM CHLORIDE 0.9% 1,000 ML 1000 ML IV (20:01)
[2022-11-07] MEDS: cefTRIAXone 1,000 MG in SODIUM CHLORIDE 0.9% 100 ML 200 MG IV ×2 (20:01→22:10)
[2022-11-07 20:12] LABS: COVID19 -Nasal RAPID Negative (Negative)
[2022-11-07 20:19] LABS: Appearance Urine UA TURBID; Bilirubin Urine UA NEGATIVE (NEGATIVE); Color Urine UA YELLOW; Glucose Urine UA NEGATIVE (Negative); Ketones Urine UA 2+ (NEGATIVE); Leukocyte Esterase Urine UA 3+ (NEGATIVE); Nitrite Urine UA NEGATIVE (Negative); Occult Blood Urine UA 1+ (Negative); Protein Urine UA 3+ (Negative); Urobilinogen Urine UA 0.2 E.U./dL (0.2)
[2022-11-07 20:20] LABS: Amorphous Sediment Urine 2+; Bacteria Urine Many (>30); Mucus Urine 4+ (Negative); RBC Urine 5-10/HPF (0-5/HPF); Squamous Epithelial Cell Urine 5-10 /HPF (0-5/HPF); WBC Urine >100/HPF (0-5/HPF)
--- NOTE | 2022-11-07 21:12 | DI.MRI.S_ITS ---
PROCEDURE: MR HEAD/BRAIN WO CON INDICATIONS: stroke TECHNIQUE: Non-contrast axial T1 spin echo, axial T2 fast spin echo, sagittal and axial FLAIR, coronal T2 fast spin echo, axial gradient echo, axial diffusion and ADC through the brain. COMPARISON: [facility], CT, CT HEAD/BRAIN WO CON, 11/07/2022, 18:51. FINDINGS: Image quality: Limited due to motion artifacts. Only sagittal FLAIR and axial diffusion weighted images were obtained. CSF spaces: Ventricles appear dilated by symmetric in size and shape. Basal cisterns are patent. No extra-axial fluid collections. Brain: There is restricted diffusion in the right posterior temporal parietal lobe consistent with acute MCA infarct. No intracranial bleeds or mass effects. There is moderate cerebral volume loss for age. There are severe periventricular and deep white matter chronic small vessel ischemic changes. Brainstem appears normal. Diffusion-weighted images show no acute ischemic insults. No chronic ischemic insults. Normal intravascular flow voids are present. Skull and face: Calvarial bone marrow is normal in signal. Orbits are normal. Sinuses: Sinuses and mastoids are clear. IMPRESSION: Acute MCA infarct in the right posterior temporoparietal lobe. The examination is severely limited. Dictated by: Leti Jarvis M.D. on 11/08/2022 at 8:13 Approved by: Leti Jarvis M.D. on 11/08/2022 at 8:16
[2022-11-07] MEDS: SODIUM CHLORIDE 0.9% 1,000 ML 60 ML IV (22:30)
[2022-11-07 22:37] LABS: Magnesium 2.1 mg/dL (1.6-2.3)
[2022-11-07 22:47] LABS: NT-proBNP (BNP-Adult 18+) 369 pg/mL (<450)
[2022-11-07 22:50] LABS: Troponin I 0.019 ng/mL (0.01-0.034)
[2022-11-07 23:15] LABS: Hemoglobin A1C% w Est Avg Glu 5.4 % (4.0-6.0)
--- NOTE | 2022-11-07 23:51 | PM.HP.1 ---
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 Due to altered mental status unable to obtain an accurate HPI, information was collected by ED RN from neighbors and friends of the patient. She has no family in the local area, she has a brother who lives in the [facility]. 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 The patient takes no medications has a medical history of a uterine prolapse, cystocele, history of UTIs, urinary incontinence, and osteoarthritis. Reviewed one urology and family practice note from 2018 which are the only records available in our system. Neighbors reported seeing her at approximately 2:30 p.m. going to her mailbox appearing slightly wobbly. The neighbors went and checked on her at 3:30 p.m. and she was normal and at her baseline, when she did not show up to a episcopal meeting later, they went over at 6:00 p.m. and she was found down. It is unclear if she hit her head, and for how long she was down for. Initially in the emergency department Dr. Damioc reported that the patient was orientated to self age and place but was unclear as to why she was in the emergency department or how she arrived there, and she was able to follow simple commands. Due to patient's altered mental status unable to obtain accurate HPI, ROS, medication reconciliation, or family history. Patient was given IV fluids, and Rocephin. -patient's admit exam was performed in the ED, at that time she was only able to state her name and age, believes she was in bed at her episcopal, was significantly more confused, unable to follow even simple commands or directions. Unable to perform NIH, patient is pleasantly confused, cognitive function has significantly deteriorated from initial ED evaluation. Patient also demonstrates a left visual avoidance neglect?, she will not look to the left even with stimulation, nor will she turn her head to the left, but is able to move her left hand left arm and left side of her body. Patient's vitals have and continued to be quite stable temp 98?, BP 126/74, HR 90, R 20, O2 saturation 98% on room air. Patient appears significantly dehydrated and malnourished is very thin skin is quite dry, significant loss of muscle wasting. Patient does have WBC 17.1 with a left shift neut 14,300, mono 2000. Procalcitonin and lactate are both WNL. 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 COVID negative. Chest x-ray negative for any acute cardiopulmonary process. EKG NSR at a rate of 96, with nonspecific ST changes. No comparison available. Head CT demonstrated acute infarction right posterior parietal lobe consistent with watershed infarct between right MCA and MEDICAL SALES REPRESENTATIVE territories. Patient admitted for stroke, UTI, with encephalopathy. Patient History Medical History (Updated 11/08/22 @ 00:11 by HAIM Harry-TONI) History of chronic urinary tract infection History of cystocele History of uterine prolapse Osteoarthritis Urinary incontinence concurrent with and due to female genital prolapse Surgical History (Updated 11/08/22 @ 00:11 by HAIM Harry-TONI) History of hysterectomy Family & Social History Safety & Behavioral: Feels Safe in Current Unwilling to Answer Environment Been Physically Hurt or Unwilling to Answer Threatened By a Person Tobacco & Substance use: Smoking Status Never smoker Meds Home Medications and Allergies Home Medications Medication Instructions Recorded Confirmed Type ASPIRIN (Aspirin Low Dose) 81 mg PO ##0 02/19/08 05/09/18 History MULTIVITAMIN (Multivitamin 0 PO * UK DOSE/FREQUENCY ##0 02/19/08 05/09/18 History -) VITAMIN C - 0 PO * UK DOSE/FREQUENCY ##0 02/19/08 05/09/18 History (VITAMIN C) prednisone 20 mg tablet 40 mg PO DAILY #8 tabs 05/09/18 Rx Allergies Allergy/AdvReac Type Severity Reaction Status Date / Time Sulfa (Sulfonamide Allergy Unknown Verified 05/09/18 13:35 Antibiotics) Review of Systems Review of Systems Narrative: Due to patient's altered mental status unable to obtain accurate HPI, ROS, medication reconciliation, or family history. Exam Vital Signs (past 8 hours): - 11/07/22 19:08 11/07/22 18:36 11/07/22 18:37 Temperature 98 F Pulse Rate 90 90 91 H Respiratory Rate 20 Blood Pressure 126/74 Pulse Oximetry 98 98 96 Oxygen Delivery Method Room Air 11/07/22 18:37 11/07/22 19:04 11/07/22 19:37 Temperature Pulse Rate 85 89 Respiratory Rate Blood Pressure 126/74 Pulse Oximetry 96 98 Oxygen Delivery Method Room Air 11/07/22 19:41 11/07/22 19:41 11/07/22 20:00 Temperature Pulse Rate 87 86 Respiratory Rate Blood Pressure 138/68 Pulse Oximetry 98 98 Oxygen Delivery Method 11/07/22 20:30 11/07/22 21:00 11/07/22 21:30 Temperature 99.7 F H 99.5 F 99.3 F Pulse Rate 85 90 93 H Respiratory Rate Blood Pressure Pulse Oximetry 97 97 96 Oxygen Delivery Method Oxygen Delivery Method Room Air Narrative Exam Narrative: General: Patient is pleasantly confused, thin frail malnourished, dehydrated appearing elderly female, in no distress at this time. HEENT: Normocephalic, atraumatic, extraocular muscles intact, oral pharynx is clear and mucous membranes are dry. Neck is supple and symmetric, trachea is midline, no adenopathy, no thyroid enlargement, nontender, no masses palpated. Negative for JVD Chest: Breathing without nasal flaring, retractions, tachypneic or labored Lungs: Auscultation of all lung billingsley are clear without adventitious sounds, wheezes, rhonchi, or rales. Cardio: regular rate and rhythm without rubs, or gallops, no carotid bruit, no cardiac pulsations present. Abdomen: Soft nontender, negative for organomegaly, or masses. Bowel sounds are very hypoactive present in all 4 quadrants without guarding or rebound, no CVA tenderness. Musculoskeletal: Muscle wasting in appearance, no deformity, crepitus, effusions, cyanosis, clubbing or edema present. intact radial and pedal pulses are normal. Skin: Extremely dry and cracking and intact without rashes, ulcerations or petechiae. Low midline hysterectomy scar. Neuro: Alert only to self ONLY, moves all extremities, may be a slight decrease in strength on the left, but unable to accurately assess as patient is unable to follow commands. sensation to touch intact, unable to accurately assess cranial nerves. Psych: Patient has a well-kept appearance, pleasant affect, altererd mental status, thought context and judgment are inappropriate due to altered mental status/stroke. Objective Labs 11/07/22 18:50 11/07/22 18:50 Labs: Laboratory Results - last 24 hr 11/07/22 11/07/22 11/07/22 18:50 18:50 18:50 WBC 17.1 H RBC 4.43 Hgb 12.8 Hct 39.0 MCV 88.0 MCH 28.8 MCHC 32.7 RDW 14.6 Plt Count 330 Neut % (Auto) 83.7 H Lymph % (Auto) 4.4 L [place] % (Auto) 11.7 Eos % (Auto) 0.0 L Baso % (Auto) 0.2 Neut # (Auto) 26748 H Lymph # (Auto) 700 L [place] # (Auto) 2000 H Eos # (Auto) 0 Baso # (Auto) 0 Sodium 136 L Potassium 3.7 Chloride 105 Carbon Dioxide 23 BUN 20 H Creatinine 0.51 L Estimated GFR > 60 BUN/Creatinine Ratio 39.2 H Glucose 134 H Hemoglobin A1c Lactate 1.5 Calcium 9.0 Magnesium Total Bilirubin 1.2 AST 50 H ALT 26 Alkaline Phosphatase 127 H Troponin I NT-Pro-B Natriuret Pep Total Protein 7.0 Albumin 4.2 Globulin 2.8 Albumin/Globulin Ratio 1.5 Lipase 60 Procalcitonin 0.10 Urine Color Urine Appearance Urine pH Ur Specific [place] Urine Protein Urine Glucose (UA) Urine Ketones Urine Occult Blood Urine Nitrate Urine Bilirubin Urine Urobilinogen Ur Leukocyte Esterase Urine RBC Urine WBC Ur Squamous Epith Cells Amorphous Sediment Urine Bacteria Urine Mucus SARS-CoV-2 (PCR) 11/07/22 11/07/22 11/07/22 18:50 18:50 18:50 WBC RBC Hgb Hct MCV MCH MCHC RDW Plt Count Neut % (Auto) Lymph % (Auto) [place] % (Auto) Eos % (Auto) Baso % (Auto) Neut # (Auto) Lymph # (Auto) [place] # (Auto) Eos # (Auto) Baso # (Auto) Sodium Potassium Chloride Carbon Dioxide BUN Creatinine Estimated GFR BUN/Creatinine Ratio Glucose Hemoglobin A1c 5.4 Lactate Calcium Magnesium 2.1 Total Bilirubin AST ALT Alkaline Phosphatase Troponin I NT-Pro-B Natriuret Pep 369 Total Protein Albumin Globulin Albumin/Globulin Ratio Lipase Procalcitonin Urine Color Urine Appearance Urine pH Ur Specific [place] Urine Protein Urine Glucose (UA) Urine Ketones Urine Occult Blood Urine Nitrate Urine Bilirubin Urine Urobilinogen Ur Leukocyte Esterase Urine RBC Urine WBC Ur Squamous Epith Cells Amorphous Sediment Urine Bacteria Urine Mucus SARS-CoV-2 (PCR) 11/07/22 11/07/22 11/07/22 18:50 19:26 19:26 WBC RBC Hgb Hct MCV MCH MCHC RDW Plt Count Neut % (Auto) Lymph % (Auto) [place] % (Auto) Eos % (Auto) Baso % (Auto) Neut # (Auto) Lymph # (Auto) [place] # (Auto) Eos # (Auto) Baso # (Auto) Sodium Potassium Chloride Carbon Dioxide BUN Creatinine Estimated GFR BUN/Creatinine Ratio Glucose Hemoglobin A1c Lactate Calcium Magnesium Total Bilirubin AST ALT Alkaline Phosphatase Troponin I 0.019 NT-Pro-B Natriuret Pep Total Protein Albumin Globulin Albumin/Globulin Ratio Lipase Procalcitonin Urine Color Yellow Urine Appearance Turbid Urine pH 8.0 Ur Specific [place] 1.020 Urine Protein 3+ H Urine Glucose (UA) Negative Urine Ketones 2+ H Urine Occult Blood 1+ H Urine Nitrate Negative Urine Bilirubin Negative Urine Urobilinogen 0.2 Ur Leukocyte Esterase 3+ H Urine RBC 5-10/hpf H Urine WBC >100/hpf H Ur Squamous Epith Cells 5-10 /hpf H Amorphous Sediment 2+ Urine Bacteria Many (>30) H Urine Mucus 4+ H SARS-CoV-2 (PCR) Negative Assessment & Plan Assessment & Plan narrative: Ange Kelsey is a pleasantly confused 87-year-old female who lives alone, who is 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 Patient admitted for stroke, UTI, encephalopathy. Patient will have MRI tomorrow to rule out hemorrhagic stroke, we will require hydration, and IV antibiotics and evaluation to determine if encephalopathy secondary to the UTI or stroke or both. If encephalopathy is secondary to stroke and does not resolve or improve will require SNF placement on discharge. 1. Stroke, acute, encephalopathy, acute, present on admission -it is unclear at this time if encephalopathy is related to the stroke, or UTI, or both. And if the patient hit her head or not, and length of time down. -Head CT demonstrated acute infarction right posterior parietal lobe consistent with watershed infarct between right MCA and MEDICAL SALES REPRESENTATIVE territories -left visual avoidance neglect?, she will not look to the left, open left eye even with stimulation/confrontation, nor turn her head to the left, but is able to move her left hand left arm and left side of her body. -bedside swallow-if negative patient may progress to regular diet, -aspiration precautions, fall precautions, patient to remain in observation room due to the risk of falls with with encephalopathy. -neuro/NIH checks -Lipitor -MRI tomorrow -holding all VTE prophylaxis, Plavix, ASA until hemorrhagic stroke is ruled out via MRI tomorrow -consult placed for PT/OT/speech/(APS)CIGAR HEAD PERFORATOR concerned that patient lives at home alone and is with no family in the state. Patient will likely need SNF placement. -was unable to verify medical history, code status-multiple attempts were made by the RN-nursing staff is to reach out to Elliot Rojas in [place] tomorrow. -A1c, procalcitonin, TSH =WNL Lipids ordered in am -initial troponin 0.019-trend x3 2. UTI with encephalopathy, acute, with a history of chronic UTIs, chronic, present on admission -WBC 17.1 with a left shift neut 14,300, mono 2000. Procalcitonin and lactate are both WNL. -Urine was described as green sludge negative for nitrates, but was positive for WBC and bacteria culture pending -ED placed [facility] provided Rocephin and fluids -NS at 60 cc/HR -Rocephin 2g/[id number] based on culture results. -blood cultures ordered 3. Malnutrition, moderate, acute on chronic, present on admission -as evidence by BMI 20.8 -patient's malnutrition places them at high risk for medical and surgical complications in relation to acute stroke & chronic UTIs. This increases the difficulty in complexity of medical management and increases the chances poor outcomes such as mortality and morbidity as well as impaired wound healing, and immune suppression. -dietary consult ordered to evaluate and implement steps to improve caloric intake and nutrition. Code status:Full-unable to verify at this time secondary to encephalopathy Surrogate decision maker: Brother Elliot Palacios - Out of state will continue to attempt contact. COVID PCR: Negative DVT/VTE prophylaxis holding medication-until hemorrhagic stroke is ruled out., SCDs only Disposition: Patient admitted to acute care as likely she is to require greater than 2 midnights stroke management, resolution of encephalopathy, and UTI. I have utilized all available immediate resources to obtain, update, or review the patient's current medications. We have been unable to reach any family members, patient has encephalopathy, and the charts are very limited and from several years ago. Exception-the patient is not eligible for medication reconciliation; the patient is in an emergent medical situation were delaying treatment would jeopardize the patient's health. I confirmed that the patient's next of kin ONLY is listed in the patient's medical record. I have personally reviewed patient's chart notes from PCP, specialists, diagnostic imaging, and laboratory results. Time Spent With Patient Critical Care time: I spent a total of [] minutes of critical care time on this patient's care today; this time is exclusive of procedural time.
[2022-11-07 23:58] LABS: Thyroid Stimulating Hormone 2.13 uIU/mL (0.47-4.68)
[2022-11-08] VITALS (31 sets, daily range): BP systolic 103–133; BP diastolic 51–70; PULSE 66–95; RESP 17–38; TEMP 36.4–37.6; O2SAT 94–99; BMI 20.7
[2022-11-08 04:07] LABS: INR 1.1 (0.9-1.3); Prothrombin Time 12.4 SECONDS (10.1-12.7)
[2022-11-08 04:10] LABS: PTT Partial Thromboplastin Tim 18 SECONDS (26-36)
[2022-11-08 04:12] LABS: BUN Creatinine Ratio 35.9 (6-22); Blood Urea Nitrogen 14 mg/dL (7-17); Carbon Dioxide 23 mmol/L (22-32); Chloride 107 mmol/L (98-107); Cholesterol 160 mg/dL (140-199); Estimated Glomerular Filt Rate > 60 mL/min (>60); Glucose 93 mg/dL (80-110); HDL Cholesterol 68 mg/dL (40-60); HEMOLYSIS < 15 (0-50); LDL Cholesterol Calculated 75 mg/dL (<100); Potassium 3.5 mmol/L (3.4-5.1); Sodium 138 mmol/L (137-145); Triglycerides 84 mg/dL (35-150)
[2022-11-08 04:23] LABS: Troponin I 0.028 ng/mL (0.01-0.034)
[2022-11-08 04:31] LABS: Add Manual Diff / Slide Review NO; Basophils Absolute Auto 100 /uL (0-100); Basophils Percent Auto 0.6 % (0-2); Eosinophils Absolute Auto 0 /uL (0-450); Eosinophils Percent Auto 0.2 % (2-4); Hematocrit 32.5 % (36-46); Hemoglobin 10.6 g/dL (12.0-16.0); Lymphocytes Absolute Auto 1100 /uL (1100-4500); Lymphocytes Percent Auto 9.7 % (25-40); Mean Corpuscular HGB Conc 32.5 % (30-36); Mean Corpuscular Volume 89.1 fL (80-100); Monocytes Absolute Auto 1400 /uL (0-900); Monocytes Percent Auto 12.3 % (3-14); Neutrophils Absolute Auto 8800 /uL (1500-7000); Neutrophils Percent Auto 77.2 % (50-75); Platelet Count 266 X10^3/uL (150-400); Red Blood Cell Count 3.65 X10^6/uL (4.0-5.2); Red Cell Distribution Width 14.6 % (11.6-14.8); White Blood Cell Count 11.4 X10^3/uL (4.5-11.0)
--- NOTE | 2022-11-08 07:32 | PC.NURSE ---
Spoke to Elliot Palacios (pts brother) to review/discuss/answer the MRI questionnaire. Brother states pt is a very healthy person and to his knowledge pt has not had any type of heart or brain procedure/surgery. To his knowledge, pt has no metal in her body.
--- NOTE | 2022-11-08 07:57 | PC.NURSE ---
MRI would not accept pt for scan with temp sensing lund cath, due to metal in temp probe. Spoke to IP hospitalist Lana Concepcion, she verbal ordered removal of temp sensing lund cath and ordered new cath placement post-MRI scan.
--- NOTE | 2022-11-08 08:16 | PC.NURSE ---
Pt went to MRI, they started the scan and after about 2 minutes (per environmental monitoring technician) the pt told them to stop and she wanted out of the machine. Pt was returned to room 6 in ED. I called the inpatient hospitalist to inform him of this matter and his response was whatever and he hung up the phone.
[2022-11-08 09:03] LABS: Creatine Kinase 731 U/L (30-135)
--- NOTE | 2022-11-08 09:13 | PM.EVENT ---
Event Note Date Patient Seen: 11/08/22 Time Patient Seen: 09:13 Event Note (Rapid Response, Code, or fall): Informed by MILITARY LOGISTICS SPECIALIST that patient refused MRI. Patient did not refuse MRI but could not tolerate and did have some images that were able to be taken. Discussed with patient at bedside. There was enough to confirm CVA without subsequent hemorrhage. No further actions necessary at this time. Full progress note to follow.
[2022-11-08 10:31] LABS: Troponin I 0.015 ng/mL (0.01-0.034)
--- NOTE | 2022-11-08 12:18 | ST.IPCSEOM ---
Visit Care Team Role Provider Type Whitney Geiger PA-C Family Provider Advanced Aspnet Developer Primary Care Provider Specialty: Medical Address: [address] [place] [address], [id number] Email: [email or web address] Emergency Provider Physician Referring Provider Specialty: Emergency Medicine Address: [address] [place] [address], [address] Email: [email or web address] Lana Concepcion [facility] Admit Provider Physician Attending Provider Specialty: Hospitalist Internal Medicine Address: [address] [place] [address], [address] Email: Current Diagnoses Cerebral infarction, unspecified (11/07/22) Past Medical History (Last Reviewed 11/08/22 @ 02:38 by Lenny Damico DO) History of chronic urinary tract infection (Medical) History of cystocele (Medical) History of uterine prolapse (Medical) Osteoarthritis (Medical) Urinary incontinence concurrent with and due to female genital prolapse (Medical) Speech-Language Pathology Swallow Evaluation ALEMITE OPERATOR Clinical Swallow Evaluation Start: 11/08/22 12:03 Freq: Status: Active Protocol: Document 11/08/22 12:04 MICHELLE (Rec: 11/08/22 12:18 SHANTELK [id number]) Clinical Swallow Evaluation Session Time Visit Start Time 08:45 Visit Stop Time 09:30 Total Visit Minutes [address] Ware Setting Assessment Location Acute Care Visit Type Note Type Initial evaluation Next Note Type Next Note Type Treatment Note Patient Information Identification Type Name,Date of History Ange Kelsey is a pleasantly confused 87-year-old female who lives alone, 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 The patient takes no medications has a medical history of a uterine prolapse, cystocele, history of UTIs, urinary incontinence, and osteoarthritis. Neighbors reported she did not show up to a cheondoism meeting later, they went over at 6:00 p.m. and she was found down. It is unclear if she hit her head, and for how long she was down for. Subjective Observations pt was seen in the ED. She was more alert than previously reported. Pt was oriented to person and being in the hospital and followed directions. She stated that vision on her left side wasn't very good when examined by Dr Kimberly Ware. She remains mildly confused and likes to talk about her past Reported by Patient Location Upper Back,Lower Back Comment Pt grimaced when her head of bed was elevated for swallow assessment Current Diet Nothing by mouth Baseline Feeding Method Dependent for feeding Objective Assessment Mental Status Alert,Responsive,Cooperative, Confused Oral Integrity WFL Dentition Within normal limits Lip Function Within normal limits Observation of Lips at Rest Symmetrical Pucker Within normal limits Lip Retraction Within normal limits Tongue Function Within normal limits Observations of Tongue at Rest Within normal limits Tongue Protrusion Within normal limits Tongue Retraction Within normal limits Tongue Lateralization Within normal limits Jaw Function Within normal limits Hard/Soft Palate Function Within normal limits Comment pt was observed to chew jackie cracker without difficulty with mastication. No oral residue observed post swallow Food and Liquid Trials Position During Assessment Upright (90 degrees),Slightly reclined Liquids Trialed Thin Solids Trialed Puree,Regular Administration Type Tea spoon,Cup single sip,Straw ,Needs some assistance, Dependent feeding Oral Impairment Within functional limits Pharyngeal Impairment Within functional limits Fatigue/Endurance Mild fatigue Results pt presented with swallowing function WFL. Pt was able to control a liquid bolus without difficulty, her hyolaryngeal elevation and airway protection as observed to be WFL. No s/sx aspiration observed. No cough, wet voicing or SOB observed post swallow Findings Swallowing Function Within functional limits Prognosis Good Based on Cognitive status,Duration of symptoms/severity Comment Recommended regular diet with thin Liquids. ST to foullow- up x1-2 to monitor safely with PO intake Recommendations Instrumental Assessment No Swallowing Treatment Yes Frequency 1-2x while inpatient Recommended Solids Regular Recommended Liquids Thin Safety Precautions/Swallowing 1 to 1 distant supervision, Recommendations Feed only when alert,Reduce distractions,Remain upright ( 90 degrees) during all oral intake,Upright position at least 30 minutes after meals, Small bites and sips when eating,Slow rate; swallow between bites,Sip by straw only,Set-up assistance,Check for pocketing Medication Recommendations As Tolerated,Whole in Carrier, Crushed in Carrier Discharge Recommendations Home,Home with Home Health Education Patient/Caregiver Education Described results of evaluation,Patient expressed understanding of evaluation, Patient expressed agreement with goals & treatment plans, Patient expressed understanding of safety precautions Goals Long-term Goals Pt will safely tolerate a least restrictive diet to meed hydration and nutritional needs without s/sx aspiration
[2022-11-08] MEDS: ASPIRIN EC 325 MG TABLET PO (13:33)
--- NOTE | 2022-11-08 15:51 | PM.PN.1 ---
Subjective Subjective Date Patient Seen: 11/08/22 Interval history: This is an 87-year-old female who was admitted after being found down in her home with neighbors. Imaging showed a probable acute infarct on her CT scan, this was confirmed today though with only limited MRI images due to patient intolerance. CK evaluated this morning also has mild rhabdo. On IV fluids. Complaining of L knee discomfort after arrival to the floor this afternoon. Will obtain L knee XR to evaluate if possible fracture. Exam Vital Signs (past 8 hours): - 11/08/22 13:04 11/08/22 13:04 11/08/22 13:30 Pulse Rate 82 79 Blood Pressure 103/56 L Pulse Oximetry 99 97 11/08/22 14:00 11/08/22 14:30 11/08/22 15:00 Pulse Rate 73 75 75 Blood Pressure Pulse Oximetry 96 96 99 11/08/22 15:30 Pulse Rate 75 Blood Pressure Pulse Oximetry 97 Oxygen Delivery Method Room Air Narrative Exam Narrative: General: Patient is pleasantly confused, thin frail malnourished, dehydrated appearing elderly female, in no distress at this time. HEENT: Normocephalic, atraumatic, extraocular muscles intact, oral pharynx is clear and mucous membranes are dry. Neck is supple and symmetric, trachea is midline, no adenopathy, no thyroid enlargement, nontender, no masses palpated. Negative for JVD Chest: Breathing without nasal flaring, retractions, tachypneic or labored Lungs: Auscultation of all lung [place] are clear without adventitious sounds, wheezes, rhonchi, or rales. Cardio: regular rate and rhythm without rubs, or gallops, no carotid bruit, no cardiac pulsations present. Abdomen: S NT ND Musculoskeletal: L knee swelling with tenderness, no overlying erythema or warmth. R knee without tenderness or swelling. Skin: Extremely dry and cracking and intact without rashes, ulcerations or petechiae. Neuro: Alert only to self , moves all extremities. +5/5 strength in all extremities, no deficits in sensation to light touch, possible L hemianopsia though exam not consistent or reliable. No facial asymmetry. Psych: Patient has a well-kept appearance, pleasant affect, altererd mental status, thought context and judgment are inappropriate due to altered mental status/stroke. Objective Labs 11/08/22 04:25 11/08/22 03:45 Labs: Laboratory Results - last 24 hr 11/07/22 11/07/22 11/07/22 18:50 18:50 18:50 WBC 17.1 H RBC 4.43 Hgb 12.8 Hct 39.0 MCV 88.0 MCH 28.8 MCHC 32.7 RDW 14.6 Plt Count 330 Neut % (Auto) 83.7 H Lymph % (Auto) 4.4 L [place] % (Auto) 11.7 Eos % (Auto) 0.0 L Baso % (Auto) 0.2 Neut # (Auto) 70823 H Lymph # (Auto) 700 L [place] # (Auto) 2000 H Eos # (Auto) 0 Baso # (Auto) 0 PT INR APTT Sodium 136 L Potassium 3.7 Chloride 105 Carbon Dioxide 23 BUN 20 H Creatinine 0.51 L Estimated GFR > 60 BUN/Creatinine Ratio 39.2 H Glucose 134 H Hemoglobin A1c Lactate 1.5 Calcium 9.0 Magnesium Total Bilirubin 1.2 AST 50 H ALT 26 Alkaline Phosphatase 127 H Total Creatine Kinase Troponin I NT-Pro-B Natriuret Pep Total Protein 7.0 Albumin 4.2 Globulin 2.8 Albumin/Globulin Ratio 1.5 Triglycerides Cholesterol LDL Cholesterol, Calc HDL Cholesterol Lipase 60 Procalcitonin 0.10 TSH Urine Color Urine Appearance Urine pH Ur Specific [place] Urine Protein Urine Glucose (UA) Urine Ketones Urine Occult Blood Urine Nitrate Urine Bilirubin Urine Urobilinogen Ur Leukocyte Esterase Urine RBC Urine WBC Ur Squamous Epith Cells Amorphous Sediment Urine Bacteria Urine Mucus SARS-CoV-2 (PCR) 11/07/22 11/07/22 11/07/22 18:50 18:50 18:50 WBC RBC Hgb Hct MCV MCH MCHC RDW Plt Count Neut % (Auto) Lymph % (Auto) [place] % (Auto) Eos % (Auto) Baso % (Auto) Neut # (Auto) Lymph # (Auto) [place] # (Auto) Eos # (Auto) Baso # (Auto) PT INR APTT Sodium Potassium Chloride Carbon Dioxide BUN Creatinine Estimated GFR BUN/Creatinine Ratio Glucose Hemoglobin A1c 5.4 Lactate Calcium Magnesium 2.1 Total Bilirubin AST ALT Alkaline Phosphatase Total Creatine Kinase Troponin I NT-Pro-B Natriuret Pep 369 Total Protein Albumin Globulin Albumin/Globulin Ratio Triglycerides Cholesterol LDL Cholesterol, Calc HDL Cholesterol Lipase Procalcitonin TSH Urine Color Urine Appearance Urine pH Ur Specific [place] Urine Protein Urine Glucose (UA) Urine Ketones Urine Occult Blood Urine Nitrate Urine Bilirubin Urine Urobilinogen Ur Leukocyte Esterase Urine RBC Urine WBC Ur Squamous Epith Cells Amorphous Sediment Urine Bacteria Urine Mucus SARS-CoV-2 (PCR) 11/07/22 11/07/22 11/07/22 18:50 18:50 19:26 WBC RBC Hgb Hct MCV MCH MCHC RDW Plt Count Neut % (Auto) Lymph % (Auto) [place] % (Auto) Eos % (Auto) Baso % (Auto) Neut # (Auto) Lymph # (Auto) [place] # (Auto) Eos # (Auto) Baso # (Auto) PT INR APTT Sodium Potassium Chloride Carbon Dioxide BUN Creatinine Estimated GFR BUN/Creatinine Ratio Glucose Hemoglobin A1c Lactate Calcium Magnesium Total Bilirubin AST ALT Alkaline Phosphatase Total Creatine Kinase Troponin I 0.019 NT-Pro-B Natriuret Pep Total Protein Albumin Globulin Albumin/Globulin Ratio Triglycerides Cholesterol LDL Cholesterol, Calc HDL Cholesterol Lipase Procalcitonin TSH 2.13 Urine Color Urine Appearance Urine pH Ur Specific [place] Urine Protein Urine Glucose (UA) Urine Ketones Urine Occult Blood Urine Nitrate Urine Bilirubin Urine Urobilinogen Ur Leukocyte Esterase Urine RBC Urine WBC Ur Squamous Epith Cells Amorphous Sediment Urine Bacteria Urine Mucus SARS-CoV-2 (PCR) Negative 11/07/22 11/08/22 11/08/22 19:26 03:45 03:45 WBC RBC Hgb Hct MCV MCH MCHC RDW Plt Count Neut % (Auto) Lymph % (Auto) [place] % (Auto) Eos % (Auto) Baso % (Auto) Neut # (Auto) Lymph # (Auto) [place] # (Auto) Eos # (Auto) Baso # (Auto) PT 12.4 INR 1.1 APTT 18 L Sodium Potassium Chloride Carbon Dioxide BUN Creatinine Estimated GFR BUN/Creatinine Ratio Glucose Hemoglobin A1c Lactate Calcium Magnesium Total Bilirubin AST ALT Alkaline Phosphatase Total Creatine Kinase Troponin I 0.028 NT-Pro-B Natriuret Pep Total Protein Albumin Globulin Albumin/Globulin Ratio Triglycerides Cholesterol LDL Cholesterol, Calc HDL Cholesterol Lipase Procalcitonin TSH Urine Color Yellow Urine Appearance Turbid Urine pH 8.0 Ur Specific [place] 1.020 Urine Protein 3+ H Urine Glucose (UA) Negative Urine Ketones 2+ H Urine Occult Blood 1+ H Urine Nitrate Negative Urine Bilirubin Negative Urine Urobilinogen 0.2 Ur Leukocyte Esterase 3+ H Urine RBC 5-10/hpf H Urine WBC >100/hpf H Ur Squamous Epith Cells 5-10 /hpf H Amorphous Sediment 2+ Urine Bacteria Many (>30) H Urine Mucus 4+ H SARS-CoV-2 (PCR) 11/08/22 11/08/22 11/08/22 03:45 04:25 08:33 WBC 11.4 H RBC 3.65 L Hgb 10.6 L Hct 32.5 L MCV 89.1 MCH 29.0 MCHC 32.5 RDW 14.6 Plt Count 266 Neut % (Auto) 77.2 H Lymph % (Auto) 9.7 L [place] % (Auto) 12.3 Eos % (Auto) 0.2 L Baso % (Auto) 0.6 Neut # (Auto) 8800 H Lymph # (Auto) 1100 [place] # (Auto) 1400 H Eos # (Auto) 0 Baso # (Auto) 100 PT INR APTT Sodium 138 Potassium 3.5 Chloride 107 Carbon Dioxide 23 BUN 14 Creatinine 0.39 L Estimated GFR > 60 BUN/Creatinine Ratio 35.9 H Glucose 93 Hemoglobin A1c Lactate Calcium 8.0 L Magnesium Total Bilirubin AST ALT Alkaline Phosphatase Total Creatine Kinase 731 H Troponin I NT-Pro-B Natriuret Pep Total Protein Albumin Globulin Albumin/Globulin Ratio Triglycerides 84 Cholesterol 160 LDL Cholesterol, Calc 75 HDL Cholesterol 68 H Lipase Procalcitonin TSH Urine Color Urine Appearance Urine pH Ur Specific [place] Urine Protein Urine Glucose (UA) Urine Ketones Urine Occult Blood Urine Nitrate Urine Bilirubin Urine Urobilinogen Ur Leukocyte Esterase Urine RBC Urine WBC Ur Squamous Epith Cells Amorphous Sediment Urine Bacteria Urine Mucus SARS-CoV-2 (PCR) 11/08/22 09:38 WBC RBC Hgb Hct MCV MCH MCHC RDW Plt Count Neut % (Auto) Lymph % (Auto) [place] % (Auto) Eos % (Auto) Baso % (Auto) Neut # (Auto) Lymph # (Auto) [place] # (Auto) Eos # (Auto) Baso # (Auto) PT INR APTT Sodium Potassium Chloride Carbon Dioxide BUN Creatinine Estimated GFR BUN/Creatinine Ratio Glucose Hemoglobin A1c Lactate Calcium Magnesium Total Bilirubin AST ALT Alkaline Phosphatase Total Creatine Kinase Troponin I 0.015 NT-Pro-B Natriuret Pep Total Protein Albumin Globulin Albumin/Globulin Ratio Triglycerides Cholesterol LDL Cholesterol, Calc HDL Cholesterol Lipase Procalcitonin TSH Urine Color Urine Appearance Urine pH Ur Specific [place] Urine Protein Urine Glucose (UA) Urine Ketones Urine Occult Blood Urine Nitrate Urine Bilirubin Urine Urobilinogen Ur Leukocyte Esterase Urine RBC Urine WBC Ur Squamous Epith Cells Amorphous Sediment Urine Bacteria Urine Mucus SARS-CoV-2 (PCR) PFS Medical History History of chronic urinary tract infection History of cystocele History of uterine prolapse Osteoarthritis Urinary incontinence concurrent with and due to female genital prolapse Surgical History (Updated 11/08/22 @ 00:11 by Lana Concepcion [facility]) History of hysterectomy Social History household members: none Smoking Status: Never smoker Assessment & Plan Assessment & Plan narrative: Ange Kelsey is a pleasantly confused 87-year-old female who lives alone, who is 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 Patient admitted for stroke, UTI, encephalopathy. MRI confirmed acute infarct. 1. Stroke, acute, encephalopathy, acute, present on admission -it is unclear at this time if encephalopathy is related to the stroke, or UTI, or both. And if the patient hit her head or not, and length of time down. -Head CT demonstrated acute infarction right posterior parietal lobe consistent with watershed infarct between right MCA and [employer] territories, confirmed with limited MRI due to patient intolerance. -no hemorrage on MRI, okay to start ASA and statin therapies -continue telemetry monitoring. -PT/OT to consult. 2. UTI with metabolic encephalopathy, acute, with a history of chronic UTIs, chronic, present on admission -continue ceftriaxone 3. Malnutrition, moderate, acute on chronic, present on admission -patient's malnutrition places them at high risk for medical and surgical complications in relation to acute stroke & chronic UTIs. This increases the difficulty in complexity of medical management and increases the chances poor outcomes such as mortality and morbidity as well as impaired wound healing, and immune suppression. -dietary consult ordered to evaluate and implement steps to improve caloric intake and nutrition. 4. Acute rhabdomyolysis - CK just above 700, continue IV fluids, no evidence of renal dysfunction. 5. L knee pain - may be contusion, fracture, no significant erythema or wamrth. Will start with L knee XR today. It is not known how patient will Code status:Full-unable to verify at this time secondary to encephalopathy Surrogate decision maker: Brother Elliot COLLINS PCR: Negative DVT/VTE prophylaxis holding medication-until hemorrhagic stroke is ruled out., SCDs only Disposition: Patient admitted to acute care, will probably need SNF. Time Spent With Patient Critical Care time: I spent a total of [] minutes of critical care time on this patient's care today; this time is exclusive of procedural time.
--- NOTE | 2022-11-08 15:53 | DI.RAD.S_ITS ---
PROCEDURE: XR KNEE LT 1TO2V INDICATIONS: l knee pain, swelling TECHNIQUE: 2 views of the knee were acquired. COMPARISON: None. FINDINGS: Bones: No fractures or dislocations. Moderate to severe tricompartmental osteoarthritis is seen with significant joint space narrowing, subchondral sclerosis and marginal osteophyte formation. There is diffuse osteopenia. No suspicious bony lesions. Soft tissues: No significant joint effusion. No suspicious soft tissue calcifications. IMPRESSION: Moderate to severe tricompartmental osteoarthritis. No acute left knee fracture or dislocation. No significant joint effusion. Dictated by: Kevin Arredondo M.D. on 11/08/2022 at 16:30 Approved by: Kevin Arredondo M.D. on 11/08/2022 at 16:30
--- NOTE | 2022-11-08 16:00 | PT.IIE ---
Current Diagnoses Cerebral infarction, unspecified (11/07/22) Surgical History (Last Updated 11/08/22 @ 00:11 by AYAAN Harry) History of hysterectomy Medical History (Last Reviewed 11/08/22 @ 02:38 by Lenny Damico DO) History of chronic urinary tract infection History of cystocele History of uterine prolapse Osteoarthritis Urinary incontinence concurrent with and due to female genital prolapse Physical Therapy Inpatient Evaluation/Re-Eval M1 PT/OT-IP Prior Functional Status Start: 11/08/22 15:20 Freq: NEEDED Status: Active Protocol: Document 11/08/22 15:24 AMB (Rec: 11/08/22 15:54 AMB [id number]) Medical Review Prior Functional Status Medical History Reviewed Yes Mobility and Gait Per notes available pt was living independently alone in her home, driving, ambulating without AD Social History Household Members none Living Arrangements House Number of Floors (Floors) Two Floors Number of Stairs To Enter/Railing? 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 PT-IP Current Condition Start: 11/08/22 15:20 Freq: NEEDED Status: Active Protocol: Document 11/08/22 15:24 AMB (Rec: 11/08/22 15:54 AMB [id number]) Physical Therapy Current Condition Current Condition Evaluation Date 11/08/22 Treatment Diagnosis Right parietal CVA Onset Date 11/07/22 M3 PT-IP Subjective Start: 11/08/22 15:20 Freq: NEEDED Status: Active Protocol: Document 11/08/22 15:24 AMB (Rec: 11/08/22 15:54 AMB [id number]) Subjective Physical Therapy Visit Type Type Initial Evaluation Visit Start Time 14:45 Visit Stop Time 15:15 Total Visit Minutes 30 Physical Therapy Visit Comments Patient Comments Pt was sleeping, then woke when PT entered. Pt very confused at beginning of treatment. Oriented pt to place, stated you're in the hospital and have had a stroke pt did accept this and then seemed more oriented. Therapy Pain Assessment Pain When Pain Assessed At Rest Pain Present Pain Present Pain Reported Location Left Hip Pain Behaviors Holding Area,Restlessness, Wincing M4 PT-IP Mobility and Gait Start: 11/08/22 15:20 Freq: NEEDED Status: Active Protocol: Document 11/08/22 15:24 AMB (Rec: 11/08/22 15:54 AMB [id number]) PT-Bed Mobility Assessment Rolling Type of Rolling Roll to Left Level of Assist Moderate Assistance Supine to Sit Supine to Sit Moderate Assistance,1 Person Assistance Sit to Supine Sit to Supine Moderate Assistance,1 Person Assistance Scooting Scooting to Edge of Bed Maximum Assistance Scooting Up and Down in Bed Dependent PT-Transfer Assessment Comments Mobility Comments Pt pleasent but confused, concerned about L knee and hip pain. Willing to get up with PT. Needed ModA for all bed mobility, including sitting at edge of bed balance. Pt with poor body position awareness, was not safe to attempt stand at that time due to pain/weakness/overall balance deficits, poor awareness of surroundings. Gait Assessment Comments Gait Comments unable PT-Balance Assessment Sitting Balance and Reactions Static Sitting Balance Ability Poor Dynamic Sitting Balance Ability Poor M5 PT-IP Objective Assessments Start: 11/08/22 15:20 Freq: NEEDED Status: Active Protocol: Document 11/08/22 15:24 AMB (Rec: 11/08/22 15:54 AMB [id number]) Orientation Orientation/Cognition Level of Alertness Confusional State Safety Awareness Decreased Safety Awareness Memory Description Short Term Impaired Gross Range of Motion Lower Extremity ROM Assessment Within Functional Limits Strength Lower Extremity Strength Assessment Left Impaired Hip 3 Knee 3 Ankle 4 Comments Strength Comments Pt somewhat confused for complete MMT but generally able to move leg against gravity, did need assist to avoid significant poor positioning (perhaps tonally influenced but difficult to tell vs pt having a difficult time following instructions) M7 PT-IP Assessment and Plan Start: 11/08/22 15:20 Freq: NEEDED Status: Active Protocol: Document 11/08/22 15:24 AMB (Rec: 11/08/22 15:54 AMB [id number]) PT Summary Assessment and Plan Potential Rehabilitation Potential Good Status of Condition at Evaluation Evolving Summary Impairments Pain,Strength,Balance,Tone, Cognition,Bed Mobility, Transfers,Gait Assessment Summary Ange was found down on the ground by her neighbors. She lives alone, was previously independent. MRI showed acute R parietal CVA. Pt with active movement in L LE, but overall increased left LLE pain and inattention to the left side make mobility very challenging at this time. Pt required ModA and constant redirection heavy verbal cues for all bed mobility and was not safe for more mobility due to inattention/pain at the time of eval. Would recommend SNF care once medically stable. Goals Bed Mobility Goal Contact Guard Assistance Transfer Goal Minimal Assistance Gait Goal Moderate Assistance Gait Distance 50' with FWW Other Goals Pt would need to do stairs if she were to d/c home but that would be unsafe at this time. Days to Meet Goals 7 Frequency of Treatment Frequency Of Treatment Once a Day Treatment Plan Physical Therapy Treatment Plan Bed Mobility Training,Transfer Training,Gait Training, Therapeutic Exercise,Balance Retraining,Discharge Planning Other Recommendations and Next Treatment Sitting balance, sit to stand, Focus transfer training dependent on pt's pain/body awareness Recommendations To Nursing Amount of Assist Needed 1 Person Assist Discharge Recommendations PT Discharge Recommendations SNF Rehab Transportation Needs at Discharge Wheelchair/Cabulance
[2022-11-08] MEDS: SODIUM CHLORIDE 0.9% 1,000 ML 150 ML IV ×2 (16:23→23:49)
[2022-11-08] MEDS: ACETAMINOPHEN 325 MG TABLET 650 MG PO (16:35)
--- NOTE | 2022-11-08 17:47 | OT.IPNOTE ---
Initiated OT eval and pt is too much left knee pain to be able to get up at this time. Nursing aware. Able to get her prior level of care- no charge.
[2022-11-08] MEDS: KETOROLAC 10 MG TABLET PO ×2 (18:08→23:50)
[2022-11-08 18:15] LABS: MRSA (Nasal) PCR Not Detected (Not Detect)
--- NOTE | 2022-11-08 18:50 | PC.NURSE ---
Admission: Patient admitted via stretcher from ED at approximately 1545. Oriented to room and call light. Bed alarm active. VSS.
[2022-11-08] MEDS: SENNOSIDES 8.6 MG TABLET 17.2 MG PO (21:49)
[2022-11-08] MEDS: ATORVASTATIN 20 MG TABLET 40 MG PO (21:50)
[2022-11-08] MEDS: cefTRIAXone 2,000 MG in SODIUM CHLORIDE 0.9% 100 ML 200 MG IV (21:50)
[2022-11-09] VITALS (40 sets, daily range): BP systolic 115–194; BP diastolic 56–116; PULSE 65–90; RESP 17–46; TEMP 36.3–37.6; O2SAT 91–99
[2022-11-09] MEDS: OXYCODONE IR 5 MG TABLET PO ×3 (03:05→13:12)
[2022-11-09 03:48] LABS: Add Manual Diff / Slide Review NO; Basophils Absolute Auto 0 /uL (0-100); Basophils Percent Auto 0.3 % (0-2); Eosinophils Absolute Auto 100 /uL (0-450); Eosinophils Percent Auto 0.6 % (2-4); Hematocrit 32.7 % (36-46); Hemoglobin 10.6 g/dL (12.0-16.0); Lymphocytes Absolute Auto 900 /uL (1100-4500); Lymphocytes Percent Auto 9.5 % (25-40); Mean Corpuscular HGB Conc 32.3 % (30-36); Mean Corpuscular Hemoglobin 29.1 PG (26-34); Mean Corpuscular Volume 90.1 fL (80-100); Monocytes Absolute Auto 1700 /uL (0-900); Monocytes Percent Auto 17.9 % (3-14); Neutrophils Absolute Auto 7000 /uL (1500-7000); Neutrophils Percent Auto 71.7 % (50-75); Platelet Count 255 X10^3/uL (150-400); Red Blood Cell Count 3.63 X10^6/uL (4.0-5.2); Red Cell Distribution Width 14.9 % (11.6-14.8); White Blood Cell Count 9.8 X10^3/uL (4.5-11.0)
[2022-11-09 03:57] LABS: Blood Urea Nitrogen 13 mg/dL (7-17); Calcium 7.4 mg/dL (8.4-10.2); Carbon Dioxide 19 mmol/L (22-32); Chloride 111 mmol/L (98-107); Estimated Glomerular Filt Rate > 60 mL/min (>60); Glucose 93 mg/dL (80-110); HEMOLYSIS < 15 (0-50); Potassium 3.2 mmol/L (3.4-5.1); Sodium 135 mmol/L (137-145)
[2022-11-09] MEDS: SODIUM CHLORIDE 0.9% 1,000 ML 150 ML IV ×3 (06:28→20:49)
--- NOTE | 2022-11-09 12:03 | OT.IP.EVAL ---
Current Diagnoses Cerebral infarction, unspecified (11/07/22) Past Medical History (Last Reviewed 11/08/22 @ 02:38 by Lenny Damico DO) History of chronic urinary tract infection History of cystocele History of uterine prolapse Osteoarthritis Urinary incontinence concurrent with and due to female genital prolapse Surgical History (Last Updated 11/08/22 @ 00:11 by Lana Concepcion [facility]) History of hysterectomy Occupational Therapy Inpatient Evaluation/Re-Eval M1 PT/OT-IP Prior Functional Status Start: 11/08/22 15:20 Freq: NEEDED Status: Complete Protocol: Document 11/08/22 15:24 AMB (Rec: 11/08/22 15:54 AMB [id number]) Medical Review Prior Functional Status Medical History Reviewed Yes Mobility and Gait Per notes available pt was living independently alone in her home, driving, ambulating without AD Social History Household Members none Living Arrangements House Number of Floors (Floors) Two Floors Number of Stairs To Enter/Railing? Per patient she has a two story home without stairs to enter Employment Status Retired Additional Social History Comment , very active in her religion M1 PT/OT-IP Prior Functional Status Start: 11/09/22 13:19 Freq: NEEDED Status: Active Protocol: Document 11/09/22 11:27 CCC (Rec: 11/09/22 13:41 [facility] [id number]) Medical Review Prior Functional Status Medical History Reviewed Yes Communication independent Mobility and Gait Per notes available pt was living independently alone in her home, driving, ambulating without AD Activities of Daily Living and IADL's Pt able to do all her ADL,IADL , gardening, and driving Prior Functional Level (Other details) Pt's friends come to check on her every 2 days per case management. Social History Household Members none Living Arrangements House Number of Floors (Floors) Two Floors Number of Stairs To Enter/Railing? Pt states has 5 steps with right rail to enter the house. Home Environment Standard Height Toilet,Tub/ Shower Home Equipment Front Wheel Walker Additional Social History Comment , very active in her religion M2 OT-IP Current Condition Start: 11/09/22 13:19 Freq: Status: Active Protocol: Document 11/09/22 11:27 CCC (Rec: 11/09/22 13:41 [facility] [id number]) Occupational Therapy Current Condition Current Condition Evaluation Date 11/09/22 Treatment Diagnosis CVA Diagnosis Onset Date 11/07/22 M3 OT- IP Subjective and Pain Start: 11/09/22 13:19 Freq: Status: Active Protocol: Document 11/09/22 11:27 [facility] (Rec: 11/09/22 13:41 [facility] [id number]) OT- Subjective Occupational Therapy Visit Type Type Initial Evaluation Visit Start Time 11:27 Visit Stop Time 12:03 Total Visit Minutes 36 Occupational Therapy Visit Comments Patient Comments Pt needing encouragement and then agreed to try to get up. Patient/Caregiver Goals To get better. OT Pain Assessment Pain When Pain Assessed During Mobility Pain Present Pain Present Pain Reported Location Left Knee Pain Behaviors Calling Out,Guarding,Holding Area,Moaning,Wincing M4 OT- IP ADL's Start: 11/09/22 13:19 Freq: Status: Active Protocol: Document 11/09/22 11:27 [facility] (Rec: 11/09/22 13:41 [facility] [id number]) OT OIO-Qjur-Vulvlet Comments OT Self-Feeding Comments Will need assist for set-up assist. OT ADL-Grooming Comments OT Grooming Comments Not performed. OT ADL-Oral Care Comments Oral Care Comments Not performed OT ADL-Dressing General Eval Lower Body Dressing Ability Total Assistance Comments OT Dressing Comments Total assist for brief and sock management needs. OT ADL-Toileting General Evaluation Toileting Ability Total Assistance Areas Needing Assistance Manage Clothing,Perform Perineal Hygiene Comments OT Toileting Comments Pt has purewick in place OT ADL-Bathing Comments OT Bathing Comments Sponge bath more appropriate at this time M5 OT- IP IADL's Start: 11/09/22 13:19 Freq: Status: Active Protocol: Document 11/09/22 11:27 [facility] (Rec: 11/09/22 13:41 [facility] [id number]) OT-Instrumental Activities of Daily Living Deficits IADL Deficits Identified Deficits Home Safety Awareness Awareness of Need for Assistance at Home Decreased Awareness Home Safety Comments Pt is not thinking clearly at this time and would need assist for all needs. M6 OT- IP Functional Cognition Start: 11/09/22 13:19 Freq: Status: Active Protocol: Document 11/09/22 11:27 [facility] (Rec: 11/09/22 13:41 [facility] [id number]) Cognitive Factors Limiting Selfcare Function Cognitive Ability Level of Alertness Alert Attention Span Ability Capable of Focused Attention, Capable of Sustained Attention Ability to Follow Commands Able to Follow One Step Commands with Increased Time, Able to Follow One Step Commands with Repetition Cognitive Comments Cognitive Assessment Comments Pt able to follow command and needing increased time for movement on LUE. Pt is very pleasant. Pt has UTI which may also be affecting her mentation. OT- Vision and Hearing OT- Vision Assessment Visual Acuity Glasses All The Time Visual Alegria Impaired Vision Assessment Comments Pt having difficulty to scan with her eyes. Pt having left hemianopsia. M7 OT- IP Mobility and Balance Start: 11/09/22 13:19 Freq: Status: Active Protocol: Document 11/09/22 11:27 [facility] (Rec: 11/09/22 13:41 [facility] [id number]) OT- Bed Mobility Assessment Supine to Sit Supine to Sit Assist Maximum Assistance,1 Person Assistance Sit to Supine Sit to Supine Assist Maximum Assistance,1 Person Assistance OT-Transfer Assessment Sit to and From Stand Sit to and from Stand Maximum Assistance,2 Person Assistance Comments Mobility Comments Pt MAX A x1 to assist to move her legs to the edge of the bed and to help get her trunk upright. Pt able to sit with JOSE. MAX AX 2 to stand to FWW , but not able to stand all the way due to having pain. At this time use of robinson lift would be the safest. During log rolling in bed MAX AX 1 , pt has a sense of falling out of the bed. OT- Balance Assessment Sitting Balance and Reactions Static Sitting Balance Ability Fair Dynamic Sitting Balance Ability Poor Standing Balance and Reactions Static Standing Balance Ability Poor M8 OT- IP Objective Assessments Start: 11/09/22 13:19 Freq: Status: Active Protocol: Document 11/09/22 11:27 [facility] (Rec: 11/09/22 13:41 [facility] [id number]) OT Gross Range of Motion Upper Extremity Range of Motion Assessment Bilaterally Impaired ROM Impairments RUE 0-100 shoulder flexion LUE 0-60 OT- Coordination Assessment Upper Extremity Finger to Nose Test Left UE Impaired Comments Coordination Comments LUE needing increased time to process being able to do finer opposition. OT-Muscle Tone Assessment Muscle Tone WNL Yes M9 OT- IP Assessment and Plan Start: 11/09/22 13:19 Freq: Status: Active Protocol: Document 11/09/22 11:27 [facility] (Rec: 11/09/22 13:41 [facility] [id number]) OT Summary Assessment and Plan Potential Rehabilitation Potential Good Analytic Complexity at Evaluation Moderate Summary OT Impairments Range of Motion,Strength, Balance,Coordination, Functional Cognition, Functional Mobility,Self- Feeding,Grooming,Dressing, Toileting,Bathing,Toilet Transfers,Shower Transfers, Activity Tolerance Progress Towards Goals Slow Progress due to Pain,Slow Progress due to Medical Issues,Slow Progress due to Activity Tolerance,Slow Progress due to Cognition Assessment Summary Pt high complexity and main barriers are pain, steps, decreased functional movement of LUE , and now needing extensive two person assist for all needs. Pt also having left hemianopsia, decreased spactial awareness, and weakness . Pt will benefit from skilled rehab when medically stable. Goals Self-Feeding Goal Independent Grooming Goal Independent Dressing Goal Minimal Assistance Toileting Goal Minimal Assistance Bathing Goal Moderate Assistance Toilet Transfer Goal Minimal Assistance Shower Transfer Goal Moderate Assistance Days to Meet Goals 25 Frequency of Treatment Frequency Of Treatment Once a Day Treatment Plan OT Treatment Plan ADL Training,Functional Cognition Training,Functional Mobility,Patient/Family Education,Discharge Planning Other Treatment Recommendations and Next grooming needs while sitting Treatment Focus at the edge of the bed Discharge Recommendations OT Discharge Recommendations SNF Rehab Transportation Needs at Discharge Wheelchair/Cabulance
--- NOTE | 2022-11-09 12:18 | CM.DANOTE ---
Initial DCP Assessment Note Pt is an 87 yo female, resident of [place], found down at home by friends and admitted for management of confirmed CVA, UTI and encephalopathy PCP: Whitney Geiger Payer: MCR/[facility] SNF being recommended thus far for this 87 yo female, typically active and indp at baseline, walks, volunteers, able to complete all ADLs independently- this confirmed by friend Manjinder Anders who was visiting patient at bedside this morning. Ed visits patient at least once weekly for a latte and good conversation Patient not A+O currently and not able to track conversation well, however, in good spirits. No DPOA ppk scanned into chart yet Friend Ed says he thinks friends Frank and Deandra Rodriguez have DPOA for patient but unsure Placed call to patient's brother Elliot Palacios who lives in [facility]. Elliot states he does not have DPOA however appreciative for the call and hopes patient will DC to a Rehab, not home, when medically cleared. Discussed SNF referral process, explained SNF choices will be reviewed w/patient and/or family and patient's agreement to this plan is paramount - Elliot states appreciation and requests email communication moving forward Emailed brother Elliot at [email or web address] and [facility] Care Management team. Patient has no living spouse or children Plan: Anticipate SNF upon discharge, patient may be alert enough for review of SNF choices w/in 24-48hrs, if not review choices w/brother Elliot vs friends, nery Jung if DPOA ppk can be secured MARLENI Aleman Discharge Planning/Care Management CM Discharge Assessment Start: 11/09/22 11:36 Freq: Status: Active Protocol: Document 11/09/22 11:36 JA (Rec: 11/09/22 12:18 JA [id number]) Discharge Planning Assessment Assigned Research Study Assistant MARLENI Rojas DPOA/Assigned Designee Name Frank and Deandra Rodriguez, friends/neighbors Contact Information [phone] or [phone] Advance Directives? No History Provided By Friend Prior Living Arrangements House Household Members none Type of transportation used prior to Drives own vehicle admit Independent with ADL's Yes Is patient alert and oriented? Yes Needs Assistance With Meal Prep Comment Meals on wheels Community Services used prior to Home Delivered Meals admission: Patient/Family Preference Half-Way Facility Barriers to Discharge Yes Comment New CVA, UTI, encephalopathy Discharge Plan Half-Way Facility Transportation Arrangement TBD, likely wheelchair Additional Comment Following closely; anticipate SNF referrals are needed but need to review SNF choices with patient when mentally clear and/or family/DPOA (need to confirm DPOA. No ppk scanned in file) Whiteboard Updated in Patient Room with Yes name and ext. # of Research Study Assistant
[2022-11-09] MEDS: ASPIRIN EC 81 MG TABLET PO (13:12)
[2022-11-09] MEDS: POTASSIUM CHLORIDE 20 MEQ TAB 40 MEQ PO (13:12)
--- NOTE | 2022-11-09 13:30 | ST.IPDYTX ---
Visit Care Team Role Provider Type Whitney Geiger PA-C Family Provider Advanced Technical Sales Specialist Primary Care Provider Specialty: Medical Address: [address] [place] [address], [id number] Email: [email or web address] Lenny Damico DO Emergency Provider Physician Referring Provider Specialty: Emergency Medicine Address: [address] [place] [address], [address] Email: [email or web address] Lana Concepcion [facility] Admit Provider Physician Attending Provider Specialty: Hospitalist Internal Medicine Address: [address] [place] [address], [id number] Email: DIELECTRIC TESTER Dysphagia Treatment DIELECTRIC TESTER Dysphagia Treatment Start: 11/08/22 12:03 Freq: Status: Active Protocol: Document 11/09/22 13:15 LNK (Rec: 11/09/22 13:30 LNK [id number]) Dysphagia Treatment Session Time Visit Start Time 11:00 Visit Stop Time 11:30 Total Visit Minutes 30 Setting Assessment Location Acute Care Visit Type Note Type Treatment Note Next Note Type Next Note Type Treatment Note Patient Information Identification Type Name,ID Wristband Subjective Observations Pt was in bed resting. She was easily awakened and recognized this DIELECTRIC TESTER. Pt was agreeable to have some water and fresh fruit as she had not eaten breakfast. Repositioned pt to an upright position. Pt c/o pain in her back during repositioning. Treatment Liquids Trialed Thin Solids Trialed Regular Administration Type Tea Spoon,Straw,Self-Feeding, Dependent Feeding Oral Strategies Upright at 90 degrees Pharyngeal Strategies Sitting Upright (90 deg),Small Bites and Sips Additional Dysphagia Treatment Pt was confused stating that Strategies she didn't know her breakfast was in room Treatment Activities After repositioning, pt was given oral swab for moisture as pt was c/o very dry mouth. Pt needed 1:1 assistance to use a fork to stab the fruit . She was able to bring her fork to her mouth, but had difficulty with hand control. Pt needed encouragement to keep eating, which she found helpful. After a few minutes, a friend came into the pt's room with a latte. She was able safely drink her latte with no overt s/sx aspiration Assessment Assessment of Improvement Pt is safely tolerating thin liquids with regular texture solids. Nursing reports no difficulty with taking medications. Pt needs assistance to initiate and continue eating. She appears to be confused, which her friend stated is not her baseline, likely related to UTI. Pt needs cognitive assessment; will postpone cog eval until pt's overall status is improved (1-2 days). Diet Recommendations Recommendations Continue Current Diet Liquids Order Thin Diet Order Regular Medication Recommendations As Tolerated Additional Dietary Needs 1:1 Assistance,Encourage to Self-Feed Aspiration Precautions Recommended Precautions Upright at 90 Degrees Treatment Plan Placement Recommendation after Discharge Fdc Facility Appropriate for Continued Therapy Yes Therapy Recommendations Monitor for continued safety with PO intake. Dysphagia Goals Pt will safely tolerate the least restrictive diet without overt s/sx aspiration.
--- NOTE | 2022-11-09 14:54 | DIET.CONS ---
Addendum entered by Sarah Zelaya 11/09/22 15:50: RD agrees with international travel consultant note below. Original Note: Dietary Consultation Note Admission Date: 11/07/2022 20:14 87 y/o F admitted for stroke, UTI, and encephalopathy, found down at home by neighbors. RD consulted for BMI 20.8 (low for age). Met with pt at bedside to discuss current wt. Pt reports always striving to have a healthy wt throughout life to avoid becoming diabetic. Pt has gained 5.2 kg/11.4 lbs in 4.5 yrs, 8.9% wt gain. Pt reports losing 1 yr ago. 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 While hospitalized, pt reports enjoying the chocolate cake with a glass of milk. EER: [id number] kcal (30-35 kcal/kg per BMI 20-25), 50-60 g protein (.9-1.1 per elderly) Diagnosis: Moderate Chronic Malnutrition r/t beliefs, knowledge, and norms aeb BMI 20.8 (low for age), lives alone, pt reports always striving for a healthy wt. Intervention: 1. Discussed with pt the importance of gaining some wt to maintain lean muscles. Recc gaining 5 lbs. 2. Will send chocolate cake with milk on meal tray at dinner. Electronically Signed by: Arina Miranda 11/09/22 14:54 Clinical Dietitian [address] [address]
--- NOTE | 2022-11-09 15:41 | P.PN_ITS ---
Subjective Subjective Date Patient Seen: 11/09/22 Interval history: Still with L knee pain today, a bit more interactive today and less lethargic. No fever, chills, chest pain, nausea, or vomiting. Also has some rib / chest discomfort. Exam Vital Signs (past 8 hours): - 11/09/22 08:00 11/09/22 12:00 Temperature 97.9 F 99.6 F Pulse Rate 76 83 Respiratory Rate 24 22 Blood Pressure 130/62 135/79 Pulse Oximetry 95 96 Oxygen Flow Rate 0 Oxygen Delivery Method Room Air Oxygen Flow Rate 0 Narrative Exam Narrative: General: Patient is pleasantly confused, thin frail malnourished, dehydrated appearing elderly female, in no distress at this time. HEENT: Normocephalic, atraumatic, extraocular muscles intact, oral pharynx is clear and mucous membranes are dry. Neck is supple and symmetric, trachea is midline, no adenopathy, no thyroid enlargement, nontender, no masses palpated. Negative for JVD Chest: Breathing without nasal flaring, retractions, tachypneic or labored Lungs: Auscultation of all lung billingsley are clear without adventitious sounds, wheezes, rhonchi, or rales. Cardio: regular rate and rhythm without rubs, or gallops, no carotid bruit, no cardiac pulsations present. Abdomen: S NT ND Musculoskeletal: L knee swelling with tenderness, no overlying erythema or warmth. R knee without tenderness or swelling. Skin: Extremely dry and cracking and intact without rashes, ulcerations or petechiae. Neuro: Alert only to self , moves all extremities. +5/5 strength in all extremities, no deficits in sensation to light touch, possible L hemianopsia though exam not consistent or reliable. No facial asymmetry. Psych: Patient has a well-kept appearance, pleasant affect, altererd mental status, thought context and judgment are inappropriate due to altered mental status/stroke. Objective Labs 11/09/22 03:20 11/09/22 03:20 Labs: Laboratory Results - last 24 hr 11/08/22 11/09/22 11/09/22 16:17 03:20 03:20 WBC 9.8 RBC 3.63 L Hgb 10.6 L Hct 32.7 L MCV 90.1 MCH 29.1 MCHC 32.3 RDW 14.9 H Plt Count 255 Neut % (Auto) 71.7 Lymph % (Auto) 9.5 L Aurora % (Auto) 17.9 H Eos % (Auto) 0.6 L Baso % (Auto) 0.3 Neut # (Auto) 7000 Lymph # (Auto) 900 L Aurora # (Auto) 1700 H Eos # (Auto) 100 Baso # (Auto) 0 Sodium 135 L Potassium 3.2 L Chloride 111 H Carbon Dioxide 19 L BUN 13 Creatinine 0.42 L Estimated GFR > 60 BUN/Creatinine Ratio 31.0 H Glucose 93 Calcium 7.4 L Nasal Screen MRSA (PCR) Not detected [facility] Medical History History of chronic urinary tract infection History of cystocele History of uterine prolapse Osteoarthritis Urinary incontinence concurrent with and due to female genital prolapse Surgical History (Updated 11/08/22 @ 00:11 by Lana Concepcion [facility]) History of hysterectomy Social History household members: none Smoking Status: Never smoker alcohol intake: current Assessment & Plan Assessment & Plan narrative: Ange Kelsey is a pleasantly confused 87-year-old female who lives alone, who is very active in her [employer], 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 Patient admitted for stroke, UTI, encephalopathy. MRI confirmed acute infarct. 1. Stroke, acute, encephalopathy, acute, present on admission -it is unclear at this time if encephalopathy is related to the stroke, or UTI, or both. And if the patient hit her head or not, and length of time down. She appears to be improving a bit today. 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 -no hemorrage on MRI, okay to start ASA and statin therapies -continue telemetry monitoring. -PT/OT to consult. 2. UTI with metabolic encephalopathy, acute, with a history of chronic UTIs, chronic, present on admission -continue ceftriaxone 3. Malnutrition, moderate, acute on chronic, present on admission -patient's malnutrition places them at high risk for medical and surgical complications in relation to acute stroke & chronic UTIs. This increases the difficulty in complexity of medical management and increases the chances poor outcomes such as mortality and morbidity as well as impaired wound healing, and immune suppression. -dietary consult ordered to evaluate and implement steps to improve caloric intake and nutrition. 4. Acute rhabdomyolysis - CK just above 700, continue IV fluids, no evidence of renal dysfunction. - repeat CK in the AM, if below 500 can stop IV fluids 5. L knee pain - may be contusion, no significant erythema or warmth and no effusion on imaging. No fracture on radiographs. continue pain control and PT/OT as tolerated Code status:Full as discussed with the patient, Surrogate decision maker: Brother Elliot COLLINS PCR: Negative DVT/VTE prophylaxis holding medication-until hemorrhagic stroke is ruled out., SCDs only Disposition: Patient admitted to acute care, will probably need SNF. Time Spent With Patient Critical Care time: I spent a total of [] minutes of critical care time on this patient's care today; this time is exclusive of procedural time. Quality VTE Deep Vein Thrombosis/Pulmonary Embolism Present on Admission: No
--- NOTE | 2022-11-09 15:46 | PT.IPTN ---
Current Diagnoses Cerebral infarction, unspecified (11/07/22) Physical Therapy Treatment Note M2 PT-IP Current Condition Start: 11/08/22 15:20 Freq: NEEDED Status: Active Protocol: Document 11/09/22 15:36 [facility] (Rec: 11/09/22 15:46 [facility] [id number]) Physical Therapy Current Condition Current Condition Evaluation Date 11/08/22 Treatment Diagnosis Right parietal CVA Onset Date 11/07/22 M3 PT-IP Subjective Start: 11/08/22 15:20 Freq: NEEDED Status: Active Protocol: Document 11/09/22 15:36 [facility] (Rec: 11/09/22 15:46 [facility] [id number]) Subjective Physical Therapy Visit Type Type Treatment Note Visit Start Time 15:14 Visit Stop Time 15:38 Total Visit Minutes 24 Physical Therapy Visit Comments Patient Comments Patient reports she just wants to be able to get a good night's sleep without being woken due to pain. C/o left LE pain and left rib pain under left breast, holding area Therapy Pain Assessment Pain When Pain Assessed During Mobility Pain Present Pain Present Pain Reported Location left anterior rib Intensity 8 Description Sharp,Spasm,Stabbing Pain Behaviors Calling Out,Facial Grimacing, Guarding,Holding Area,Moaning, Restlessness Left Knee Intensity 7 Left Hip Intensity 5 M4 PT-IP Mobility and Gait Start: 11/08/22 15:20 Freq: NEEDED Status: Active Protocol: Document 11/09/22 15:36 [facility] (Rec: 11/09/22 15:46 [facility] [id number]) PT-Bed Mobility Assessment Rolling Type of Rolling Roll to Left Level of Assist Moderate Assistance Supine to Sit Supine to Sit Moderate Assistance,1 Person Assistance Sit to Supine Sit to Supine Moderate Assistance,1 Person Assistance Scooting Scooting to Edge of Bed Maximum Assistance Scooting Up and Down in Bed Dependent PT-Transfer Assessment Comments Mobility Comments Patient pleasant, reluctantly willing to participate in PT. Sitting balance required min assist at EOB, pt. refused standing due to left knee and rib pain. LAQ also painful left. Able to perform ankle pumps x 10 jesus during sitting then assisted back to bed supine. Gait Assessment Comments Gait Comments unable PT-Balance Assessment Sitting Balance and Reactions Static Sitting Balance Ability Fair Dynamic Sitting Balance Ability Poor M5 PT-IP Objective Assessments Start: 11/08/22 15:20 Freq: NEEDED Status: Active Protocol: Document 11/09/22 15:36 [facility] (Rec: 11/09/22 15:46 [facility] [id number]) Orientation Orientation/Cognition Level of Alertness Confusional State Orientation Name,Place Safety Awareness Decreased Safety Awareness Memory Description Short Term Impaired M6 PT-IP Treatment Start: 11/08/22 15:20 Freq: NEEDED Status: Active Protocol: Document 11/09/22 15:36 [facility] (Rec: 11/09/22 15:46 [facility] [id number]) Physical Therapy Treatment Exercises Exercises Ankle Pumps Other Treatments Other Treatment Performed LAQ 10x right, 3 x left but c/ o pain M7 PT-IP Assessment and Plan Start: 11/08/22 15:20 Freq: NEEDED Status: Active Protocol: Document 11/09/22 15:36 [facility] (Rec: 11/09/22 15:46 [facility] [id number]) PT Summary Assessment and Plan Summary Impairments Pain,Strength,Balance,Tone, Cognition,Bed Mobility, Transfers,Gait Assessment Summary Ange required mod assistance from supine to sit with HOB elevated and same to return back to supine. Her sitting balance was improved from yesterday, but she c/o pain left anterior ribs under breast as well as left knee pain and refused to try standing or walking. Nursing notified about limitations due to pain control. Goals Bed Mobility Goal Contact Guard Assistance Transfer Goal Minimal Assistance Gait Goal Moderate Assistance Gait Distance 50' with FWW Other Goals Pt would need to do stairs if she were to d/c home but that would be unsafe at this time. Days to Meet Goals 7 Frequency of Treatment Frequency Of Treatment Once a Day Treatment Plan Physical Therapy Treatment Plan Bed Mobility Training,Transfer Training,Gait Training, Therapeutic Exercise,Balance Retraining,Discharge Planning Other Recommendations and Next Treatment Sitting balance, sit to stand, Focus transfer training dependent on pt's pain/body awareness Discharge Recommendations Transportation Needs at Discharge Wheelchair/Cabulance
[2022-11-09] MEDS: OXYCODONE IR 10 MG TABLET PO ×2 (16:55→20:33)
[2022-11-09] MEDS: cefTRIAXone 2,000 MG in SODIUM CHLORIDE 0.9% 100 ML 200 MG IV (20:31)
[2022-11-09] MEDS: ATORVASTATIN 20 MG TABLET 40 MG PO (20:32)
[2022-11-09] MEDS: SENNOSIDES 8.6 MG TABLET 17.2 MG PO (20:33)
[2022-11-09] MEDS: ACETAMINOPHEN 325 MG TABLET 650 MG PO (22:15)
[2022-11-09] MEDS: methocarbamoL 500 MG TABLET PO (22:16)
[2022-11-10 01:56] VITALS: BP 134/64; PULSE 78; RESP 18; TEMP 36.4; O2SAT 97
[2022-11-10] MEDS: SODIUM CHLORIDE 0.9% 1,000 ML 150 ML IV (03:55)
[2022-11-10 05:18] LABS: Add Manual Diff / Slide Review NO; Basophils Absolute Auto 0 /uL (0-100); Basophils Percent Auto 0.3 % (0-2); Eosinophils Absolute Auto 100 /uL (0-450); Eosinophils Percent Auto 1.1 % (2-4); Hematocrit 32.6 % (36-46); Hemoglobin 10.8 g/dL (12.0-16.0); Lymphocytes Absolute Auto 1100 /uL (1100-4500); Lymphocytes Percent Auto 14.1 % (25-40); Mean Corpuscular HGB Conc 33.1 % (30-36); Mean Corpuscular Hemoglobin 29.5 PG (26-34); Mean Corpuscular Volume 89.2 fL (80-100); Monocytes Absolute Auto 1100 /uL (0-900); Monocytes Percent Auto 13.4 % (3-14); Neutrophils Absolute Auto 5600 /uL (1500-7000); Neutrophils Percent Auto 71.1 % (50-75); Platelet Count 276 X10^3/uL (150-400); Red Blood Cell Count 3.66 X10^6/uL (4.0-5.2); Red Cell Distribution Width 14.8 % (11.6-14.8); White Blood Cell Count 7.9 X10^3/uL (4.5-11.0)
[2022-11-10 05:32] LABS: BUN Creatinine Ratio 18.4 (6-22); Blood Urea Nitrogen 7 mg/dL (7-17); Calcium 7.6 mg/dL (8.4-10.2); Carbon Dioxide 19 mmol/L (22-32); Chloride 108 mmol/L (98-107); Estimated Glomerular Filt Rate > 60 mL/min (>60); Glucose 94 mg/dL (80-110); HEMOLYSIS < 15 (0-50); Potassium 3.5 mmol/L (3.4-5.1); Sodium 134 mmol/L (137-145)
[2022-11-10 05:34] LABS: Magnesium 1.9 mg/dL (1.6-2.3)
[2022-11-10 05:36] LABS: Creatine Kinase 121 U/L (30-135)
[2022-11-10 05:45] VITALS: BP 136/65; PULSE 74; RESP 19; O2SAT 97
[2022-11-10] MEDS: ASPIRIN EC 81 MG TABLET PO (08:36)
[2022-11-10 09:00] VITALS: BP 155/70; PULSE 76; RESP 14; TEMP 36.9; O2SAT 97
--- NOTE | 2022-11-10 11:14 | ST.IPDYTX ---
Visit Care Team Role Provider Type Whitney Geiger PA-C Family Provider Advanced Facsimile Operator Primary Care Provider Specialty: Medical Address: [address] [place] [address], [id number] Email: [email or web address] Lenny Damico DO Emergency Provider Physician Referring Provider Specialty: Emergency Medicine Address: [address] [place] [address], [address] Email: [email or web address] Lana Concepcion [facility] Admit Provider Physician Attending Provider Specialty: Hospitalist Internal Medicine Address: [address] [place] [address], [address] Email: ROD CUP FILLER Dysphagia Treatment R[employer] CUP FILLER Dysphagia Treatment Start: 11/08/22 12:03 Freq: Status: Active Protocol: Document 11/10/22 10:31 [facility] (Rec: 11/10/22 10:34 ZS [id number]) Dysphagia Treatment Session Time Visit Start Time 09:25 Visit Stop Time 09:41 Total Visit Minutes 16 Setting Assessment Location Acute Care Visit Type Note Type Treatment Note Next Note Type Next Note Type Treatment Note Patient Information Identification Type Name,ID Wristband Subjective Observations Pt was seated upright in bed with morning meal in front of her and friends at bedside when ROD CUP FILLER arrived. She was observed to be talking with her friends and sipping coffee . One friend indicated she ate one bite of eggs, but no other food. Breakfast tray included vargas, eggs, fruit, and hash browns. Pt also had open container of mini Oreos, which she appeared to have eaten some of. Pt spoke very highly of flavor of foods. Treatment Liquids Trialed Thin Solids Trialed Regular Administration Type Tea Spoon,Cup Single Sip,Self- Feeding Oral Strategies Upright at 90 degrees Pharyngeal Strategies Sitting Upright (90 deg),Small Bites and Sips Additional Dysphagia Treatment Pt was confused stating that Strategies she didn't know her breakfast was in room Treatment Activities Observed morning meal and provided verbal prompts to keep eating. Discussed visual reminder for meal tracking. Assessment Assessment of Improvement Pt is safely tolerating thin liquids with regular texture solids. Nursing reports no difficulty with taking medications. Pt needs assistance to initiate and continue eating, though becomes easily distracted with others present in the room. She was observed to continue conversation and not eat despite verbal reminders to eat while she was conversing. She would likely benefit from 1:1 distant supervision with verbal cues to keep eating. Additionally, limited social visits during meals would likely help with focus while eating and minimize distractions. Provided education regarding visual support for meal tracking (e.g ., did you eat breakfast? with y/n tolowa dee-ni' response). Pt expressed understanding, though attempted to tolowa dee-ni' response before finishing meal and started referring to aid as notes. Reviewed purpose of visual aid for external support in remembering to eat meals. Taped aid under meal tray and discussed strategy with NSG to provide verbal cues to use aid when clearing meals. She appears to be confused, which her friend stated is not her baseline, likely related to UTI/encephalopathy. Pt needs cognitive assessment; will postpone cog eval until pt's overall status is improved (1-2 days). Diet Recommendations Recommendations Continue Current Diet Liquids Order Thin Diet Order Regular Medication Recommendations As Tolerated Additional Dietary Needs 1:1 Assistance,Encourage to Self-Feed Aspiration Precautions Recommended Precautions Upright at 90 Degrees Treatment Plan Placement Recommendation after Discharge [facility]dc Facility Appropriate for Continued Therapy Yes Therapy Recommendations Monitor for continued safety with PO intake. Dysphagia Goals Pt will safely tolerate the least restrictive diet without overt s/sx aspiration.
--- NOTE | 2022-11-10 12:42 | PC.NURSE ---
Day shift: Pt in room from ICU bed 230 at approx 1230. She is calm and cooperative at this time. She is confused. VS WNL. RA 97%. No c/o nausea. When asked she did complain of back pain.
[2022-11-10] MEDS: POTASSIUM CHLORIDE 20 MEQ TAB PO (12:46)
[2022-11-10] MEDS: ACETAMINOPHEN 325 MG TABLET 650 MG PO (13:43)
[2022-11-10] MEDS: OXYCODONE IR 5 MG TABLET PO (13:43)
--- NOTE | 2022-11-10 14:15 | OT.IP.TRT ---
Current Diagnoses Cerebral infarction, unspecified (11/07/22) Occupational Therapy Treatment Note M2 OT-IP Current Condition Start: 11/09/22 13:19 Freq: Status: Active Protocol: Document 11/09/22 11:27 [facility] (Rec: 11/09/22 13:41 [facility] [id number]) Occupational Therapy Current Condition Current Condition Evaluation Date 11/09/22 Treatment Diagnosis CVA Diagnosis Onset Date 11/07/22 M3 OT- IP Subjective and Pain Start: 11/09/22 13:19 Freq: Status: Active Protocol: Document 11/10/22 14:15 [facility] (Rec: 11/10/22 17:40 [facility] [id number]) OT- Subjective Occupational Therapy Visit Type Type Treatment Note Visit Start Time 14:15 Visit Stop Time 14:50 Total Visit Minutes 35 Occupational Therapy Visit Comments Patient Comments Pt agreed to do therapy with OT and RN LACTATION. Patient/Caregiver Goals To get better OT Pain Assessment Pain When Pain Assessed During Mobility Pain Present Pain Present Pain Reported M5 OT- IP IADL's Start: 11/09/22 13:19 Freq: Status: Active Protocol: Document 11/09/22 11:27 [facility] (Rec: 11/09/22 13:41 [facility] [id number]) OT-Instrumental Activities of Daily Living Deficits IADL Deficits Identified Deficits Home Safety Awareness Awareness of Need for Assistance at Home Decreased Awareness Home Safety Comments Pt is not thinking clearly at this time and would need assist for all needs. M6 OT- IP Functional Cognition Start: 11/09/22 13:19 Freq: Status: Active Protocol: Document 11/10/22 14:15 [facility] (Rec: 11/10/22 17:40 [facility] [id number]) Cognitive Factors Limiting Selfcare Function Cognitive Ability Level of Alertness Alert,Confusional State Patient Orientation Name Attention Span Ability Capable of Focused Attention, Unable to Focus Ability to Follow Commands Able to Follow One Step Commands with Increased Time, Able to Follow One Step Commands with Repetition Cognitive Comments Cognitive Assessment Comments Pt easily distracted and needing concrete cues to follow. Per pt's friend states pt is a social butterfly prior. Pt needing verbal, tactile and visual cues to follow for bed mobility and balance needs. OT- Vision and Hearing OT- Vision Assessment Vision Assessment Comments Pt having left neglect and needing tactile cues to use her LUE and LLE. M7 OT- IP Mobility and Balance Start: 11/09/22 13:19 Freq: Status: Active Protocol: Document 11/10/22 14:15 [facility] (Rec: 11/10/22 17:40 [facility] [id number]) OT- Bed Mobility Assessment Supine to Sit Supine to Sit Assist Moderate Assistance,Maximum Assistance,1 Person Assistance Sit to Supine Sit to Supine Assist Maximum Assistance,2 Person Assistance OT-Transfer Assessment Comments Mobility Comments Pt able to physically help to lift her legs better to the edge of the bed but still needing MOD/MAXAx1 to get her trunk upright. OT- Balance Assessment Sitting Balance and Reactions Static Sitting Balance Ability Fair Dynamic Sitting Balance Ability Poor Comments Other Balance Tests/Deviations/Treatment Pt still heavily leans to the : left and needing from MOD to MAX AX for sitting balance needs. Pt able to look into the mirror but still decreased ability to get herself back to midline. M8 OT- IP Objective Assessments Start: 11/09/22 13:19 Freq: Status: Active Protocol: Document 11/09/22 11:27 [facility] (Rec: 11/09/22 13:41 [facility] [id number]) OT Gross Range of Motion Upper Extremity Range of Motion Assessment Bilaterally Impaired ROM Impairments RUE 0-100 shoulder flexion LUE 0-60 OT- Coordination Assessment Upper Extremity Finger to Nose Test Left UE Impaired Comments Coordination Comments LUE needing increased time to process being able to do finer opposition. OT-Muscle Tone Assessment Muscle Tone WNL Yes M9 OT- IP Assessment and Plan Start: 11/09/22 13:19 Freq: Status: Active Protocol: Document 11/10/22 14:15 [facility] (Rec: 11/10/22 17:40 [facility] [id number]) OT Summary Assessment and Plan Potential Rehabilitation Potential Good Analytic Complexity at Evaluation Moderate Summary OT Impairments Range of Motion,Strength, Balance,Coordination, Functional Cognition, Functional Mobility,Self- Feeding,Grooming,Dressing, Toileting,Bathing,Toilet Transfers,Shower Transfers, Activity Tolerance Progress Towards Goals Slow Progress due to Pain,Slow Progress due to Medical Issues,Slow Progress due to Activity Tolerance,Slow Progress due to Cognition Assessment Summary Pt still having balance,visual and LUE and LLE control, and needing extensive assist x2 for mobility needs. Pt will benefit from skilled rehab and after rehab will most likely need assist at home. Goals Self-Feeding Goal Independent Grooming Goal Independent Dressing Goal Minimal Assistance Toileting Goal Minimal Assistance Bathing Goal Moderate Assistance Toilet Transfer Goal Minimal Assistance Shower Transfer Goal Moderate Assistance Days to Meet Goals 25 Frequency of Treatment Frequency Of Treatment Once a Day Treatment Plan OT Treatment Plan ADL Training,Functional Cognition Training,Functional Mobility,Patient/Family Education,Discharge Planning Other Treatment Recommendations and Next grooming needs while sitting Treatment Focus at the edge of the bed Discharge Recommendations OT Discharge Recommendations SNF Rehab Transportation Needs at Discharge Wheelchair/Cabulance
--- NOTE | 2022-11-10 14:23 | PM.PN.1 ---
Subjective Subjective Date Patient Seen: 11/10/22 Time Patient Seen: 16:37 Interval history: Seen in her room today follow-up for CVA and urinary tract infection. She is pending discharge to [facility] facility. She is in a jovial and labile mood today. Her comments are somewhat nonsensical but very cheerful. She has significant left hemineglect and visual field defect. Urine culture is negative so the ceftriaxone will be stopped. Exam Vital Signs (past 8 hours): - 11/10/22 07:00 11/10/22 09:00 Temperature 98.5 F Pulse Rate 76 Respiratory Rate 14 Blood Pressure 155/70 H Pulse Oximetry 97 Oxygen Delivery Method Room Air Oxygen Delivery Method Room Air Oxygen Flow Rate 0 Narrative Exam Narrative: Alert and oriented to name Very jovial, nonsensical, tangential, significant left keri-neglect Heart is regular rate and rhythm without murmur Lungs are clear to auscultation bilaterally Extremities have no ankle edema Neurological Left upper and lower extremity motor function is 4/5 Right upper and lower extremity motor function is 5/5 Left visual field defect and keri-neglect present [id number] dysmetria on the left side Upgoing Babinski on the left side Objective Labs 11/10/22 03:36 11/10/22 03:36 Labs: Laboratory Results - last 24 hr 11/10/22 11/10/22 11/10/22 03:36 03:36 03:36 WBC 7.9 RBC 3.66 L Hgb 10.8 L Hct 32.6 L MCV 89.2 MCH 29.5 MCHC 33.1 RDW 14.8 Plt Count 276 Neut % (Auto) 71.1 Lymph % (Auto) 14.1 L [place] % (Auto) 13.4 Eos % (Auto) 1.1 L Baso % (Auto) 0.3 Neut # (Auto) 5600 Lymph # (Auto) 1100 [place] # (Auto) 1100 H Eos # (Auto) 100 Baso # (Auto) 0 Sodium Potassium Chloride Carbon Dioxide BUN Creatinine Estimated GFR BUN/Creatinine Ratio Glucose Calcium Magnesium 1.9 Total Creatine Kinase 121 D 11/10/22 03:36 WBC RBC Hgb Hct MCV MCH MCHC RDW Plt Count Neut % (Auto) Lymph % (Auto) [place] % (Auto) Eos % (Auto) Baso % (Auto) Neut # (Auto) Lymph # (Auto) [place] # (Auto) Eos # (Auto) Baso # (Auto) Sodium 134 L Potassium 3.5 Chloride 108 H Carbon Dioxide 19 L BUN 7 Creatinine 0.38 L Estimated GFR > 60 BUN/Creatinine Ratio 18.4 Glucose 94 Calcium 7.6 L Magnesium Total Creatine Kinase [facility] Medical History History of chronic urinary tract infection History of cystocele History of uterine prolapse Osteoarthritis Urinary incontinence concurrent with and due to female genital prolapse Surgical History (Updated 11/08/22 @ 00:11 by Lana Concepcion, [facility]) History of hysterectomy Social History household members: none Smoking Status: Never smoker alcohol intake: current Assessment & Plan Assessment & Plan narrative: Ange Kelsey is a pleasantly confused 87-year-old female who lives alone, who is very active in her yazidi, 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 The patient takes no medications, has a medical history of uterine prolapse, cystocele, history of UTIs, urinary incontinence, and osteoarthritis.? Patient admitted for stroke, UTI, encephalopathy. MRI confirmed acute infarct. 1. Stroke, acute, encephalopathy, acute, present on admission -it is unclear at this time if encephalopathy is related to the stroke, or UTI, or both.?She appears to be improving a bit today. 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 -no hemorrhage on MRI, okay to start ASA and statin therapies -begin Plavix for at least 21 days, was on aspirin when the stroke occurred -continue telemetry monitoring. -PT/OT to consult. 2. UTI with metabolic encephalopathy, acute, with a history of chronic UTIs, chronic,? present on admission -urine culture is negative. Stop ceftriaxone 11/10. 3. Malnutrition, moderate, acute on chronic, present on admission -patient's malnutrition places them at high risk for medical and surgical complications in relation to acute stroke & chronic UTIs.? This increases the difficulty in complexity of medical management and increases the chances poor outcomes such as mortality and morbidity as well as impaired wound healing, and immune suppression. -dietary consult ordered to evaluate and implement steps to improve caloric intake and nutrition. 4. Acute rhabdomyolysis ?- CK just above 700, continue IV fluids, no evidence of renal dysfunction. ?- CK on 11/10 was 121 and normal, stop IV fluids 5. L knee pain ?- may be contusion, no significant erythema or warmth and no effusion on imaging. No fracture on radiographs. continue pain control and PT/OT as tolerated Code status:Full as discussed with the patient, Surrogate decision maker: Brother Elliot COLLINS PCR:? Negative DVT/VTE no no clinical evidence for hemorrhagic transformation, begin Lovenox on 11/10 Disposition:? Will need SNF. Time Spent With Patient Critical Care time: I spent a total of [] minutes of critical care time on this patient's care today; this time is exclusive of procedural time. Quality VTE Deep Vein Thrombosis/Pulmonary Embolism Present on Admission: No
--- NOTE | 2022-11-10 15:33 | PT.IPTN ---
Current Diagnoses Cerebral infarction, unspecified (11/07/22) Physical Therapy Treatment Note M2 PT-IP Current Condition Start: 11/08/22 15:20 Freq: NEEDED Status: Active Protocol: Document 11/09/22 15:36 [facility] (Rec: 11/09/22 15:46 [facility] [id number]) Physical Therapy Current Condition Current Condition Evaluation Date 11/08/22 Treatment Diagnosis Right parietal CVA Onset Date 11/07/22 M3 PT-IP Subjective Start: 11/08/22 15:20 Freq: NEEDED Status: Active Protocol: Document 11/10/22 14:59 [facility] (Rec: 11/10/22 15:30 [facility] [id number]) Subjective Physical Therapy Visit Type Type Treatment Note Visit Start Time 14:24 Visit Stop Time 14:56 Total Visit Minutes [address]FFIC CONTROLLER Vis[address] 1 Therapy Pain Assessment Pain When Pain Assessed During Mobility Pain Present Pain Present Pain Reported M4 PT-IP Mobility and Gait Start: 11/08/22 15:20 Freq: NEEDED Status: Active Protocol: Document 11/10/22 14:59 [facility] (Rec: 11/10/22 15:30 [facility] [id number]) PT-Bed Mobility Assessment Rolling Type of Rolling Bilateral Level of Assist Moderate Assistance,1 Person Assistance Supine to Sit Supine to Sit Moderate Assistance,Maximum Assistance,1 Person Assistance Sit to Supine Sit to Supine Maximum Assistance,2 Person Assistance Scooting Scooting Up and Down in Bed Dependent PT-Transfer Assessment Comments Mobility Comments Pt laying in bed upon arrival. Friend in room with her. Pt is very chatty and having difficulty focusing. Cooperative but with difficlulty following directions. ModA-MaxA x1 supine>sit, max cues. Poor balance sitting on side of bed requiring Mod-MaxA to balance . Pt leans to left side and requires constant cueing to sit upright and hold still. While seated on SOB, pt completed several exercises with OT behind her to assist in balancing. After completing exercises, pt required MaxA x2 to return to supine. Nsg entered room to change brief. ModA x1 to roll bilaterally during brief change. Dependent to scoot to head of bed. Pt given bedside tray and all needs, including call light, within reach. Gait Assessment Comments Gait Comments unable PT-Balance Assessment Sitting Balance and Reactions Static Sitting Balance Ability Poor Dynamic Sitting Balance Ability Poor M5 PT-IP Objective Assessments Start: 11/08/22 15:20 Freq: NEEDED Status: Active Protocol: Document 11/09/22 15:36 [facility] (Rec: 11/09/22 15:46 [facility] [id number]) Orientation Orientation/Cognition Level of Alertness Confusional State Orientation Name,Place Safety Awareness Decreased Safety Awareness Memory Description Short Term Impaired M6 PT-IP Treatment Start: 11/08/22 15:20 Freq: NEEDED Status: Active Protocol: Document 11/10/22 14:59 [facility] (Rec: 11/10/22 15:30 LJ [id number]) Physical Therapy Treatment Exercises Exercises Straight Leg Raises,Seated Knee Flexion/Extension Other Treatments Other Treatment Performed seated hip ab/ad with resistance from therapist x5 B abdominal crunches in bed with CGA assist x8 M7 PT-IP Assessment and Plan Start: 11/08/22 15:20 Freq: NEEDED Status: Active Protocol: Document 11/10/22 14:59 [facility] (Rec: 11/10/22 15:30 LJ [id number]) PT Summary Assessment and Plan Summary Impairments Pain,Strength,Balance,Tone, Cognition,Bed Mobility, Transfers,Gait Assessment Summary Pt required ModA to MaxA with bed mobility and mod-MaxA with sitting balance. Difficulty focusing on task at hand needing constant cueing. No c/ o pin in rib area but expressed pain in left knee with mobility but not exercises. Will continue to assess progress. Pt will require SNF rehab to improve mobility function. Goals Bed Mobility Goal Contact Guard Assistance Transfer Goal Minimal Assistance Gait Goal Moderate Assistance Gait Distance 50' with FWW Other Goals Pt would need to do stairs if she were to d/c home but that would be unsafe at this time. Days to Meet Goals 7 Frequency of Treatment Frequency Of Treatment Once a Day Treatment Plan Physical Therapy Treatment Plan Bed Mobility Training,Transfer Training,Gait Training, Therapeutic Exercise,Balance Retraining,Discharge Planning Other Recommendations and Next Treatment Sitting balance, sit to stand, Focus transfer training dependent on pt's pain/body awareness Recommendations To Nursing Amount of Assist Needed 2 Person Assist Discharge Recommendations Transportation Needs at Discharge Wheelchair/Cabulance
--- NOTE | 2022-11-10 16:04 | CM.DPC ---
DCP Continued: CM met with the patient and her neighbor Deandra at the bedside- Patient was still very confused but was able to agree with SNF placement during CM visit- however not sure how much patient was able to follow the conversation. Patient agreed to CM talking with her Neighbor and to going to SNF. Patient also agreed to [facility] and [facility] as options for SNF placement with [facility] being first choice of patient and neighbor. CM called Eliza at [facility] who is reviewing for possible admission. sent Her brother Elliot an Email but have not heard back at this time, Cm also tried calling his phone and LV to conferm SNF placement options and plan. PCP: Whitney Geiger Plan: DC to SNF when medically stable VS home with HH depending on patients medically needs- [facility] and [facility] reviewing. PASSR needed. Teresita Burkett RNdepartmental shipping clerk
[2022-11-10 16:24] VITALS: BP 163/77; PULSE 78; RESP 16; TEMP 36.7; O2SAT 97
[2022-11-10 20:00] VITALS: BP 176/84; PULSE 90; RESP 18; TEMP 37.4; O2SAT 98
[2022-11-10] MEDS: SENNOSIDES 8.6 MG TABLET 17.2 MG PO (20:57)
[2022-11-10] MEDS: ATORVASTATIN 20 MG TABLET 40 MG PO (20:57)
[2022-11-11] VITALS: BP 162/70; PULSE 85; RESP 18; TEMP 36.4; O2SAT 98
[2022-11-11] MEDS: QUETIAPINE 25 MG TABLET 12.5 MG PO (00:20)
[2022-11-11] MEDS: LORazepam 2 MG/ML INJ 0.5 MG IV ×2 (02:11→02:33)
[2022-11-11] MEDS: OXYCODONE IR 5 MG TABLET PO (02:48)
[2022-11-11 06:19] VITALS: BP 158/67; PULSE 99; RESP 18; TEMP 36.8; O2SAT 94
[2022-11-11 06:24] LABS: Add Manual Diff / Slide Review NO; Basophils Absolute Auto 0 /uL (0-100); Basophils Percent Auto 0.3 % (0-2); Eosinophils Absolute Auto 200 /uL (0-450); Eosinophils Percent Auto 1.9 % (2-4); Hematocrit 32.3 % (36-46); Lymphocytes Absolute Auto 1200 /uL (1100-4500); Mean Corpuscular HGB Conc 33.9 % (30-36); Mean Corpuscular Hemoglobin 29.9 PG (26-34); Mean Corpuscular Volume 88.2 fL (80-100); Monocytes Absolute Auto 1300 /uL (0-900); Monocytes Percent Auto 14.6 % (3-14); Neutrophils Absolute Auto 6300 /uL (1500-7000); Neutrophils Percent Auto 70.2 % (50-75); Platelet Count 298 X10^3/uL (150-400); Red Blood Cell Count 3.67 X10^6/uL (4.0-5.2); Red Cell Distribution Width 14.2 % (11.6-14.8)
[2022-11-11 07:25] LABS: Calcium 7.9 mg/dL (8.4-10.2); Carbon Dioxide 24 mmol/L (22-32); Chloride 103 mmol/L (98-107); Estimated Glomerular Filt Rate > 60 mL/min (>60); Glucose 98 mg/dL (80-110); HEMOLYSIS < 15 (0-50); Potassium 3.3 mmol/L (3.4-5.1); Sodium 136 mmol/L (137-145)
[2022-11-11 07:27] LABS: BUN Creatinine Ratio 6.1 (6-22); Blood Urea Nitrogen < 2 mg/dL (7-17); Magnesium 1.9 mg/dL (1.6-2.3)
--- NOTE | 2022-11-11 08:36 | SLP.IPNOTE ---
Attempted to see pt for cognitive screen/swallow follow-up at 8:35. Pt was sleeping and NSG requested she have more time to sleep as she was up a lot last night. Will attempt again later.
--- NOTE | 2022-11-11 09:32 | SLP.IPNOTE ---
Attempted to see pt for vkpgoga-plqfdh-it/cognitive screen at 9:30. Pt was asleep and awoke to verbal and tactile greeting. She began speaking about markers, [place], and seemed to think she was at home. NSG reported pt was given a variety of sedatives to help her sleep last night, which may be impacting her fatigue and participation levels today. Not appropriate for a cognitive screen at this time. Meal tracking support does not appear to have transitioned rooms with the pt. Will provide new copy of this once pt is awake and alert.
--- NOTE | 2022-11-11 09:55 | PC.NURSE ---
Assess- Patient is alert but not oriented. She is soundly sleeping and will wake up to voice. Offered her medication and lovenox but she states not right now, I just want to sleep for a while longer. NIH stroke scale a 3. Patient has been having some vision issues on her left side. Hard to assess at this time because she is sleeping. Will further assess when she is awake.
--- NOTE | 2022-11-11 10:25 | DI.ECHO.S_ITS ---
[facility] +---------+ : : [address] [place] : : : : [id number] : : : : Phone: [phone]+ Echocardiogram Report + + :Name: BUCK PALOMINO Study Date: 11/11/2022 Height: 64 in : :[facility] ReadingLocation: Weight: 121 lb : : Gender: Female BSA: 1.6 m2 : :: 1935 Age: 87 yrs BP: 158/67 mmHg: :Reason For Study: CVA : :Ordering Physician: NICOLE, : :KENY Performed By: Mariangel Sevilla : :Referring: KENY RIVERA : + + Interpretation Summary The ejection fraction is estimated to be 60-65%. Diastolic function could not be accurately assessed due to unobtainable data. The right ventricular systolic function is normal. There is mild tricuspid regurgitation. The right ventricular systolic pressure is estimated to be at least 39 mmHg based on an estimated right atrial pressure of 3 mm Hg. Procedure: A two-dimensional transthoracic echocardiogram with color flow and Doppler was performed. The study quality was technically limited. There is no prior echocardiogram noted for this patient. Patient was increasingly agitated and would not lay still for exam. BLIND SLAT STAPLING MACHINE OPERATOR helped provide assistance throughout exam. Exam was limited after parasternal window. The heart rate ranged between 85-114 bpm during the study. Left Ventricle: The left ventricle is normal in size and wall thickness. The ejection fraction is estimated to be 60-65%. Diastolic function could not be accurately assessed due to unobtainable data. Right Ventricle: The right ventricle is grossly normal size. The right ventricular systolic function is normal. Atria: The left atrium grossly appears normal in size. The right atrium grossly appears normal in size. Mitral Valve: There is mild mitral annular calcification. The mitral valve leaflets appear mildly thickened, but open well. There is trace mitral regurgitation. Aortic Valve: The aortic valve is trileaflet. The aortic valve opens well. There is no aortic valve stenosis. No aortic regurgitation is present. Tricuspid Valve: The tricuspid valve leaflets are thickened and/or calcified, but open well. There is mild tricuspid regurgitation. The right ventricular systolic pressure is estimated to be at least 39 mmHg based on an estimated right atrial pressure of 3 mm Hg. Pulmonic Valve: The pulmonic valve is not well seen, but is grossly normal. There is mild pulmonic regurgitation. Great Vessels: The aortic root is normal size. The ascending aorta could not be visualized. The IVC is of normal diameter and collapses greater than 50% with a sniff. This suggests a low right atrial pressure of 3 mm Hg. Pericardium/ Pleura There is no pericardial effusion. There is no pleural effusion. MMode/2D Measurements & Calculations LVIDd: 4.9 cm LVOT diam: 2.0 cm LVIDs: 3.1 cm Ao root diam: 3.0 cm FS: 37.7 % IVSd: 0.66 cm LVPWd: 0.68 cm LV camejo. diameter/BSA (cm/m^2): 3.1 LV sys. diameter/BSA (cm/m^2): 1.9 LA dimension: 2.6 cm RA long axis: 4.0 cm LA A4 area: 16.3 cm2 RA area: 9.8 cm2 LA length (vol): 4.3 cm RA vol: 20.5 ml RA : 13.0 ml/m2 IVC diam: 1.5 cm RVD1 (basal): 3.3 cm RVD2 (mid): 2.8 cm Doppler Measurements & Calculations Ao V2 max: 112.6 cm/sec LVOT Max Kit: 87.1 cm/sec Ao V2 mean: 66.0 cm/sec LV V1 max P.0 mmHg Ao max P.1 mmHg LV V1 VTI: 17.6 cm Ao mean P.1 mmHg BAUDILIO(I,D): 2.5 cm2 Ao V2 VTI: 21.5 cm BAUDILIO(V,D): 2.4 cm2 sev ratio: 0.82 BAUDILIO indexed to BSA (cm^2/m^2): 1.6 MV E max kit: 75.9 cm/sec TR max kit: 299.1 cm/sec MV A max kit: 136.3 cm/sec TR max P.8 mmHg MV E/A: 0.56 PA V2 max: 93.0 cm/sec Med Peak E' Kit: 8.5 cm/sec PA V2 mean: 58.8 cm/sec E/E' med: 8.9 PA mean P.7 mmHg Lat Peak E' Kit: 9.2 cm/sec PA pr(Accel): 46.5 mmHg E/E' lat: 8.2 E/e' average: 8.6 MV dec time: 0.17 sec [facility] 54.6 ml Reading Physician:01:54 PM
--- NOTE | 2022-11-11 10:32 | DI.CT.S_ITS ---
PROCEDURE: CT ANGIO HEAD AND NECK INDICATIONS: CVA TECHNIQUE: Pre-contrast 4.5 mm thick sections acquired from the foramen magnum to the vertex. After the administration of intravenous contrast, 1 mm thick sections acquired from the aortic arch through the [place]. Post-contrast 4.5 mm thick sections then re-acquired from the foramen magnum to the vertex. MIP reformats of the arterial vasculature were utilized. For radiation dose reduction, the following was used: automated exposure control, adjustment of mA and/or kV according to patient size. COMPARISON: [facility], MR, MR HEAD/BRAIN WO CON, 11/08/2022, 7:36. FINDINGS: Noncontrast CT Brain: Cerebrum, cerebellum and brainstem: Complete loss of the hawkins-white junction well-defined edema with sulcal effacement present in the posterior 3rd of the right MCA territory. Severe atrophy and confluent white matter chronic ischemic change present as well. No current midline shift or hemorrhage. Ventricles: Appropriate size and position. No evidence of hydrocephalus. Skull base: The bony sella, pituitary gland and infundibulum are unremarkable. Posterior fossa and cerebellum are unremarkable. Visualized portions of the external auditory canals and tympanic cavity are within normal limits. Calvarium and Scalp: No scalp soft tissue swelling. The underlying calvarium is intact without skull fracture or lytic lesion. Paranasal Sinuses: Unremarkable as visualized. No acute sinusitis. Mastoids: Unremarkable as visualized. No mastoid effusion. Cerebral CT Angiogram: Internal carotid arteries: Calcified atherosclerotic plaque in the cavernous ICA results in moderate stenosis bilaterally. Anterior cerebral arteries: Unremarkable. No significant stenosis. No occlusion. No aneurysm. Middle cerebral arteries: Relative Dearth of vessels in the posterior 3rd right MCA distal vasculature. No M1 MCA lesion. Posterior cerebral arteries: Hypoplasia/aplasia of the left P1 SECURITY CONTROL ASSESSOR noted. The P2 segment is supplied by a widely patent posterior communicating artery. Remainder of the distal vasculature unremarkable. Basilar artery: Unremarkable. No significant stenosis. No occlusion. No aneurysm. Vertebral arteries: Right vertebral artery dominance Dural venous sinuses: Unremarkable given phase of enhancement. Other: Arterial phase brain parenchyma unremarkable. Neck CT Angiogram: Internal carotid arteries: Bilateral proximal ICA calcification without significant stenosis Common carotid arteries: Unremarkable. No significant stenosis. No dissection or occlusion. External carotid arteries: Unremarkable. No occlusion. Vertebral arteries: Right vertebral artery dominance Aortic arch and mediastinum: Unremarkable. Other: Multilevel degenerative disc disease and arthropathy in cervical spine IMPRESSION: 1. Subacute right MCA infarct without current midline shift or hemorrhagic conversion Note: Any reported proximal ICA stenosis was calculated using NASCET guidelines. Approved by: Brett Villatoro M.D. on 11/11/2022 at 17:07
[2022-11-11] MEDS: ACETAMINOPHEN 325 MG TABLET 650 MG PO ×2 (12:24→20:18)
[2022-11-11] MEDS: POTASSIUM CHLORIDE 20 MEQ TAB 40 MEQ PO ×2 (12:24→17:21)
[2022-11-11] MEDS: methocarbamoL 500 MG TABLET PO (12:27)
[2022-11-11] MEDS: SODIUM CHLORIDE 0.9% 1,000 ML 42 ML IV (14:05)
--- NOTE | 2022-11-11 14:27 | P.PN_ITS ---
Subjective Subjective Date Patient Seen: 11/11/22 Interval history: 87 yo female admitted due to CVA with left hemineglect and visual deficit. Pt appears confused, won't open eyes, mumbles she's sleeping. She has been getting frequent oxycodone for knee pain and also started on low dose Seroquel likely contributing to somnolence and confusion. Exam Vital Signs (past 8 hours): Oxygen Delivery Method Room Air Oxygen Flow Rate 0 Narrative Exam Narrative: Gen: sleeping,difficult to arouse lungs: clear CV: regular Ext: no edema Neuro: LUE, LLE 4/5, lt visual field deficit Objective Labs 11/11/22 06:03 11/11/22 06:03 Labs: Laboratory Results - last 24 hr 11/11/22 11/11/22 11/11/22 06:03 06:03 06:03 WBC 9.0 RBC 3.67 L Hgb 11.0 L Hct 32.3 L MCV 88.2 MCH 29.9 MCHC 33.9 RDW 14.2 Plt Count 298 Neut % (Auto) 70.2 Lymph % (Auto) 13.0 L [place] % (Auto) 14.6 H Eos % (Auto) 1.9 L Baso % (Auto) 0.3 Neut # (Auto) 6300 Lymph # (Auto) 1200 [place] # (Auto) 1300 H Eos # (Auto) 200 Baso # (Auto) 0 Sodium 136 L Potassium 3.3 L Chloride 103 Carbon Dioxide 24 BUN < 2 L Creatinine 0.33 L Estimated GFR > 60 BUN/Creatinine Ratio 6.1 Glucose 98 Calcium 7.9 L Magnesium 1.9 PFSH Medical History History of chronic urinary tract infection History of cystocele History of uterine prolapse Osteoarthritis Urinary incontinence concurrent with and due to female genital prolapse Surgical History (Updated 11/08/22 @ 00:11 by AYAAN Harry) History of hysterectomy Social History household members: none Smoking Status: Never smoker alcohol intake: current Assessment & Plan Assessment & Plan narrative: Ange Kelsey is a pleasantly confused 87-year-old female who lives alone, who is very active in 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 The patient takes no medications, has a medical history of uterine prolapse, cystocele, history of UTIs, urinary incontinence, and osteoarthritis.? Patient admitted for stroke, UTI, encephalopathy. MRI confirmed acute infarct. 1. Stroke, acute, encephalopathy, acute, present on admission -Head CT demonstrated acute infarction right posterior parietal lobe consistent with watershed infarct between right MCA and MORTGAGE LOAN SPECIALIST territories, confirmed with limited MRI due to patient intolerance. -no hemorrhage on MRI, okay to start ASA and statin therapies -begin Plavix 75 mg daily, was on aspirin when the stroke occurred -stop ASA in 3 weeks after starting Plavix -continue telemetry - no afib noted so far -PT/OT/ST to consult. St recommends regular with thins, 1:1 assist -ECHO ordered -head/neck CTA ordered 2. Acute encephalopathy secondary to CVA, present on admission, active -also pt has been getting frequent oxycodone for knee pain and now seems more confused and somnolent -d/c oxycodone -d/c Seroquel -dec po intake secondary to somnolence, restarted IVF, NS at 40 cc/hr 3. Malnutrition, moderate, acute on chronic, present on admission -patient's malnutrition places them at high risk for medical and surgical complications in relation to acute stroke & chronic UTIs.? This increases the difficulty in complexity of medical management and increases the chances poor outcomes such as mortality and morbidity as well as impaired wound healing, and immune suppression. -dietary consult ordered to evaluate and implement steps to improve caloric intake and nutrition. 4. Acute rhabdomyolysis ?- CK just above 700, continue IV fluids, no evidence of renal dysfunction. ?- CK on 11/10 was 121 and normal, stop IV fluids 5. L knee pain ?- may be contusion, no significant erythema or warmth and no effusion on imaging. No fracture on radiographs. continue pain control and PT/OT as tolera jorge luis -Tylenol prn 6. Abnormal UA -UTI ruled out with negative culture -Rocephin doscontinued 11/10 Code status:Full as discussed with the patient, Surrogate decision maker: Brother Elliot COLLINS PCR:? Negative DVT/VTE no no clinical evidence for hemorrhagic transformation, begin Lovenox on 11/10 Disposition:? Will need SNF. Time Spent With Patient Critical Care time: I spent a total of [] minutes of critical care time on this patient's care today; this time is exclusive of procedural time. Quality VTE Deep Vein Thrombosis/Pulmonary Embolism Present on Admission: No
--- NOTE | 2022-11-11 18:13 | PT.IPTN ---
Current Diagnoses Cerebral infarction, unspecified (11/07/22) Physical Therapy Treatment Note M2 PT-IP Current Condition Start: 11/08/22 15:20 Freq: NEEDED Status: Active Protocol: Document 11/09/22 15:36 SAK (Rec: 11/09/22 15:46 SAK [id number]) Physical Therapy Current Condition Current Condition Evaluation Date 11/08/22 Treatment Diagnosis Right parietal CVA Onset Date 11/07/22 M3 PT-IP Subjective Start: 11/08/22 15:20 Freq: NEEDED Status: Active Protocol: Document 11/11/22 17:48 LJ (Rec: 11/11/22 18:13 LJ [id number]) Subjective Physical Therapy Visit Type Type Treatment Note Visit Start Time 15:26 Visit Stop Time 15:52 Total Visit Minutes 26 Number of WEB PRODUCTION MANAGER Visits 2 Physical Therapy Visit Comments Patient Comments Pt confused not understanding what is happening or why she is here. Therapy Pain Assessment Pain When Pain Assessed During Mobility Pain Present Pain Present Pain Reported M4 PT-IP Mobility and Gait Start: 11/08/22 15:20 Freq: NEEDED Status: Active Protocol: Document 11/11/22 17:48 LJ (Rec: 11/11/22 18:13 LJ [id number]) PT-Bed Mobility Assessment Rolling Type of Rolling Bilateral Level of Assist Moderate Assistance,1 Person Assistance Supine to Sit Supine to Sit Moderate Assistance,1 Person Assistance,Head of Bed Elevated Sit to Supine Sit to Supine Moderate Assistance,1 Person Assistance,Head of Bed Elevated Scooting Scooting to Edge of Bed Minimal Assistance Scooting Up and Down in Bed Dependent PT-Transfer Assessment Sit to and From Stand Sit to and from Stand Maximum Assistance,1 Person Assistance,Use of Upper Extremities Comments Mobility Comments Pt in bed with gown pulled off her body in distress. In state of confusion and distress. Instructed pt to roll to left so that gown could be untangled and removed . Pt had pulled out periwick and was pulling at brief. She had apparently removed some of the tele pads and most of the connections were unclipped. Bed soaked and pt wet. ModA to roll to left to SL position and ModA for SL to sit on side of bed. Pt scooted to edge of bed Myrtle. Call light activated for nursing to assist with bed change. Pt able to stand for wet brief to be removed ModA and cues to stand upright. Pt leaned on FWW with w/elbows while nsg removed sheets ~20 sec. Pt sat heavily down on bed CGA while nsg placed sheets on bed. Pt stood second time to allow nsg to finish making bed ~20 sec. and clean her up. Pt instructed to sit on bed again CGA with ModA for sitting balance. Pt then assisted with SL lifting LEs onto bed. Nsg rolled pt onto back to position for donning brief. Nsg then removed tele pads and instructed pt to roll to right ModA. Pt then assisted rolling to left ModA. Pt positioned in bed on left side with pillow behind back and between legs. Pt given warm blankets and began to settle down. Pt left in bed with call light on bed next to her. Gait Assessment Comments Gait Comments unable PT-Balance Assessment Sitting Balance and Reactions Static Sitting Balance Ability Poor Dynamic Sitting Balance Ability Poor Standing Balance and Reactions Static Standing Balance Ability Poor Dynamic Standing Balance Ability Poor M5 PT-IP Objective Assessments Start: 11/08/22 15:20 Freq: NEEDED Status: Active Protocol: Document 11/09/22 15:36 SAK (Rec: 11/09/22 15:46 SAK [id number]) Orientation Orientation/Cognition Level of Alertness Confusional State Orientation Name,Place Safety Awareness Decreased Safety Awareness Memory Description Short Term Impaired M6 PT-IP Treatment Start: 11/08/22 15:20 Freq: NEEDED Status: Active Protocol: Document 11/11/22 17:48 JR (Rec: 11/11/22 18:13 LJ [id number]) Physical Therapy Treatment Education Education Provided Safety M7 PT-IP Assessment and Plan Start: 11/08/22 15:20 Freq: NEEDED Status: Active Protocol: Document 11/11/22 17:48 JR (Rec: 11/11/22 18:13 LJ [id number]) PT Summary Assessment and Plan Summary Impairments Pain,Strength,Balance,Tone, Cognition,Bed Mobility, Transfers,Gait Progress Towards Goals Slow Progress due to Pain,Slow Progress due to Medical Issues,Slow Progress due to Activity Tolerance Assessment Summary Pt distress and confused. Unable to focus and follow instructions very well but attemots to do so. Continually verbalizing her confusion and desire to just . Sitting balance remains poor as is standing balance. Pt will require SNF rehab to gain mobility, strength, and function. Unsafe to return home. Goals Bed Mobility Goal Contact Guard Assistance Transfer Goal Minimal Assistance Gait Goal Moderate Assistance Gait Distance 50' with FWW Other Goals Pt would need to do stairs if she were to d/c home but that would be unsafe at this time. Days to Meet Goals 7 Frequency of Treatment Frequency Of Treatment Once a Day Treatment Plan Physical Therapy Treatment Plan Bed Mobility Training,Transfer Training,Gait Training, Therapeutic Exercise,Balance Retraining,Discharge Planning Other Recommendations and Next Treatment Sitting balance, sit to stand, Focus transfer training dependent on pt's pain/body awareness Recommendations To Nursing Amount of Assist Needed 2 Person Assist Discharge Recommendations Transportation Needs at Discharge Wheelchair/Cabulance
[2022-11-11 20:10] VITALS: BP 147/71; PULSE 89; RESP 19; TEMP 36.8; O2SAT 95
[2022-11-11] MEDS: SENNOSIDES 8.6 MG TABLET 17.2 MG PO (20:18)
[2022-11-11] MEDS: ATORVASTATIN 20 MG TABLET 40 MG PO (20:21)
[2022-11-12 04:37] VITALS: BP 148/65; PULSE 79; RESP 15; TEMP 36.5; O2SAT 95
[2022-11-12 08:00] VITALS: BP 125/61; PULSE 78; RESP 20; TEMP 37.1; O2SAT 98
[2022-11-12] MEDS: ENOXAPARIN 40 MG/0.4 ML SYRINGE SUBCUT (08:34)
[2022-11-12] MEDS: ASPIRIN EC 81 MG TABLET PO (08:34)
[2022-11-12] MEDS: CLOPIDOGREL 75 MG TABLET PO (08:34)
[2022-11-12] MEDS: ACETAMINOPHEN 325 MG TABLET 650 MG PO (08:34)
--- NOTE | 2022-11-12 09:38 | PC.NURSE ---
Assess- Patient is doing better than she was yesterday. She complains of her lips hurting. Mouth sponged out and lip balm applied to area. Patient ate some bites of breakfast and now she is visiting with a friend from [place]. Patient took her medications well and was given some tylenol. She does have narcotics if her pain becomes worse, but this makes her groggy and its hard for her to wake up. Lovenox injection given to back of r.jewel. She did not appreciate this, but understood why we were giving this.
--- NOTE | 2022-11-12 10:36 | P.DS_ITS ---
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 Due to altered mental status unable to obtain an accurate HPI, information was collected by ED RN from neighbors and friends of the patient.? She has no family in the local area, she has a brother who lives in the [facility].? The patient's neighbors report that they visit her once weekly for T, her house is very clean organized, she is very physically active, cognitively sharp and again organizes and runs multiple groups in her cheondoism.? The patient takes no medications has a medical history of a uterine prolapse, cystocele, history of UTIs, urinary incontinence, and osteoarthritis.? Reviewed one urology and family practice note from 2018 which a re the only records available in our system.? Neighbors reported seeing her at approximately 2:30 p.m. going to her mailbox appearing slightly wobbly.? The neighbors went and checked on her at 3:30 p.m. and she was normal and at her baseline, when she did not show up to a cheondoism meeting later, they went over at 6:00 p.m. and she was found down.? It is unclear if she hit her head, and for how long she was down for.? Initially in the emergency department Dr. Damico reported that the patient was orientated to self age and place but was unclear as to why she was in the emergency department or how she arrived there, and she was able to follow simple commands.? Due to patient's altered mental status unable to obtain accurate HPI, ROS, medication reconciliation, or family history.? Patient was given IV fluids, and Rocephin. -patient's admit exam was performed in the ED, at that time she was only able to state her name and age, believes she was in bed at her cheondoism, was significantly more confused, unable to follow even simple commands or directions. Unable to perform NIH, patient is pleasantly confused, cognitive function has significantly deteriorated from initial ED evaluation.? Patient also demonstrates a left visual avoidance neglect?, she will not look to the left even with stimulation, nor will she turn her head to the left, but is able to move her left hand left arm and left side of her body.? Patient's vitals have and continued to be quite stable temp 98?, BP 126/74, HR 90, R 20, O2 saturation 98% on room air.? Patient appears significantly dehydrated and malnourished is very thin skin is quite dry, significant loss of muscle wasting. Patient does have WBC 17.1 with a left shift neut 14,300, mono 2000.? Procalcitonin and lactate are both WNL.? Urine was described as green sludge negative for nitrates, but was positive for WBC and bacteria culture pending- BUN 20, SOLE STITCHER HAND 0.51, glucose 134, AST 50-no labs for comparison..? COVID negative.? Chest x-ray negative for any acute cardiopulmonary process.? EKG NSR at a rate of 96, with nonspecific ST changes.? No comparison available.? Head CT demonstrated acute infarction right posterior parietal lobe consistent with watershed infarct between right MCA and [employer]IAN territories.? Patient admitted for stroke, UTI, with encephalopathy. Discharge Providers Provider Date of admission: 11/07/22 20:14 Discharge Date: 11/12/22 Primary care physician: Whitney Geiger PA-C Consults: 11/07/22 21:12 Consult to Discharge Planning Routine Comment: Consult to Occupational Therapy Evaluate & Treat Comment: stroke -lives alone Physician Instructions: Evaluate and treat Consult to Physical Therapy Evaluate & Treat Comment: stroke-lives alone Physician Instructions: Evaluate and Treat Consult to Speech Therapy Evaluate & Treat Comment: stroke Physician Instructions: Evaluate and treat 11/07/22 21:31 Consult to Dietitian, Adult Routine Comment: Reason For Exam: lives alone BMI 20.8 Consult to [employer] - 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 Acute CVA, rt hemispheric 2. Lt hemineglect 3. Acute encephalopathy secondary to stroke (brain ischemia) 4. Mod protein calorie malnutrition 5. Lt knee pain, secondary to osteoarthritis 6. Acute rhabdomyolysis 1. PROCEDURE:? CT HEAD/BRAIN WO CON ? INDICATIONS:? altered mental status ? TECHNIQUE:? Noncontrast 4.5 mm thick angled axial sections acquired from the foramen magnum to the vertex, with coronal and sagittal reformats.? For radiation dose reduction, the following was used:? automated exposure control, adjustment of mA and/or kV according to patient size.? ? COMPARISON:? None. ? FINDINGS:? Image quality:? Excellent.? ? CSF spaces:? Basal cisterns are patent.? No extra-axial fluid collections.? The ventricles are symmetric in size and shape.? ? Brain:? No intracranial bleeds or masses.? There is cerebral volume loss for age, with resultant ventricular and sulcal prominence.? There are periventricular and deep white matter chronic small vessel ischemic changes.? There is intracranial internal carotid artery atherosclerosis.? There is a cortical hypodensity in the right parietal a simple lobe consistent with watershed infarction between the right MCA and [employer]IAN territory. ? Skull and face:? Calvarium and visualized facial bones appear intact, without suspicious lesions.? ? Sinuses:? Visualized sinuses and mastoids are clear.? ? IMPRESSION:? 1. Acute infarction in the right posterior parietal lobe consistent with watershed infarction between the right MCA and [employer]IAN territory. 2. Diffuse atrophy and microvascular ischemic disease. ? Findings were discussed with Dr. Damico. ? Dictated by: Romero Downs M.D. on 11/07/2022 at 19:35 ? ? Approved by: Romero Downs M.D. on 11/07/2022 at 19:40 ? 2. PROCEDURE:? MR HEAD/BRAIN WO CON ? INDICATIONS:? stroke ? TECHNIQUE:? Non-contrast axial T1 spin echo, axial T2 fast spin echo, sagittal and axial FLAIR, coronal T2 fast spin echo, axial gradient echo, axial diffusion and ADC through the brain.? ? COMPARISON:? [facility], CT, CT HEAD/BRAIN WO CON, 11/07/2022, 18:51. ? FINDINGS:? Image quality:? Limited due to motion artifacts.? Only sagittal FLAIR and axial diffusion weighted images were obtained. ? CSF spaces:? Ventricles appear dilated by symmetric in size and shape.? Basal cisterns are patent.? No extra-axial fluid collections.? ? Brain:? There is restricted diffusion in the right posterior temporal parietal lobe consistent with acute MCA infarct.? No intracranial bleeds or mass effects.? There is moderate cerebral volume loss for age.? There are severe periventricular and deep white matter chronic small vessel ischemic changes.? Brainstem appears normal.? Diffusion-weighted images show no acute ischemic insults.? No chronic ischemic insults.? Normal intravascular flow voids are present.? ? Skull and face:? Calvarial bone marrow is normal in signal.? Orbits are normal.? ? Sinuses:? Sinuses and mastoids are clear.? ? IMPRESSION:? Acute MCA infarct in the right posterior temporoparietal lobe.? The examination is severely limited. ? ? Dictated by: Leti Jarvis M.D. on 11/08/2022 at 8:13 ? ? Approved by: Leti Jarvis M.D. on 11/08/2022 at 8:16 ? 3. PROCEDURE:? CT ANGIO HEAD AND NECK ? INDICATIONS:? CVA ? TECHNIQUE:? Pre-contrast 4.5 mm thick sections acquired from the foramen magnum to the vertex.? After the administration of intravenous contrast, 1 mm thick sections acquired from the aortic arch through the [place].? Post-contrast 4.5 mm thick sections then re- acquired from the foramen magnum to the vertex.? MIP reformats of the arterial vasculature were utilized.? For radiation dose reduction, the following was used:? automated exposure control, adjustment of mA and/or kV according to patient size.? ? COMPARISON:? [facility], , MR HEAD/BRAIN WO CON, 11/08/2022, 7:36. ? FINDINGS: ? Noncontrast CT Brain: ? Cerebrum, cerebellum and brainstem:? Complete loss of the hawkins-white junction well-defined edema with sulcal effacement present in the posterior 3rd of the right MCA territory.? Severe atrophy and confluent white matter chronic ischemic change present as well.? No current midline shift or hemorrhage. ? Ventricles:? Appropriate size and position.? No evidence of hydrocephalus. ? Skull base:? The bony sella, pituitary gland and infundibulum are unremarkable.? Posterior fossa and cerebellum are unremarkable. Visualized portions of the external auditory canals and tympanic cavity are within normal limits. ? Calvarium and Scalp:? No scalp soft tissue swelling.? The underlying calvarium is intact without skull fracture or lytic lesion. ? Paranasal Sinuses:? Unremarkable as visualized.? No acute sinusitis. Mastoids:? Unremarkable as visualized.? No mastoid effusion. ? Cerebral CT Angiogram: ? Internal carotid arteries:? Calcified atherosclerotic plaque in the cavernous ICA results in moderate stenosis bilaterally. ? Anterior cerebral arteries:? Unremarkable.? No significant stenosis.? No occlusion.? No aneurysm. ? Middle cerebral arteries:? Relative Dearth of vessels in the posterior 3rd right MCA distal vasculature.? No M1 MCA lesion. ? Posterior cerebral arteries:? 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 The P2 segment is supplied by a widely patent posterior communicating artery. Remainder of the distal vasculature unremarkable. ? Basilar artery:? Unremarkable.? No significant stenosis.? No occlusion.? No aneurysm. ? Vertebral arteries:? Right vertebral artery dominance ? Dural venous sinuses:? Unremarkable given phase of enhancement. Other: Arterial phase brain parenchyma unremarkable. ? Neck CT Angiogram: ? Internal carotid arteries:? Bilateral proximal ICA calcification without significant stenosis ? Common carotid arteries:? Unremarkable.? No significant stenosis.? No dissection or occlusion. ? External carotid arteries:? Unremarkable.? No occlusion. ? Vertebral arteries:? Right vertebral artery dominance ? Aortic arch and mediastinum: Unremarkable. Other:? Multilevel degenerative disc disease and arthropathy in cervical spine ? IMPRESSION: ? 1. Subacute right MCA infarct without current midline shift or hemorrhagic conversion ? ? Note: Any reported proximal ICA stenosis was calculated using NASCET guidelines.? ? ? Approved by: Brett Villatoro M.D. on 11/11/2022 at 17:07? 4. ECHOCARDIOGRAM Interpretation Summary The ejection fraction is estimated to be 60-65%. Diastolic function could not be accurately assessed due to unobtainable data. The right ventricular systolic function is normal. There is mild tricuspid regurgitation. The right ventricular systolic pressure is estimated to be at least 39 mmHg based on an estimated right atrial pressure of 3 mm Hg. 5. PROCEDURE:? XR KNEE LT 1TO2V ? INDICATIONS:? l knee pain, swelling ? TECHNIQUE:? 2 views of the knee were acquired.? ? COMPARISON:? None. ? FINDINGS:? ? Bones:? No fractures or dislocations.? Moderate to severe tricompartmental osteoarthritis is seen with significant joint space narrowing, subchondral sclerosis and marginal osteophyte formation.? There is diffuse osteopenia.? No suspicious bony lesions.? ? Soft tissues:? No significant joint effusion.? No suspicious soft tissue calcifications.? IMPRESSION:? Moderate to severe tricompartmental osteoarthritis.? No acute left knee fracture or dislocation.? No significant joint effusion. Hospital Course: Previously active normal functioning female was admitted due to rt parietal CVA seen on CT and MRI. Started on clopidogrel and atorvastatin in addition to ASA which she was taking prior to admission. Her mental status is slowly improving. Initial concern for UTI, ruled out with neg urine cx. Pt was also hydrated for mild rhabdo. Evaluated by PT, OT and ST during hospital stay. Tele without evid ence of afib. ECHO unremarkable, CTA unremarkable. Pt's blood pressures are running mildly elevated at this time. She should have close BP monitoring and consider starting low dose antihypertensive if BPs remain elevated in a week from now. The aspirin should be continued for 20 days then pt to remain on just clopidogrel for long-term anti-platelet therpay. Scheduled Tylenol is ordered for knee arthritis pain. She is also started citalopram due to significant depressed mood related to the stroke. Exam Vital Signs (past 8 hours): - 11/12/22 04:37 11/12/22 08:00 Temperature 97.7 F 98.7 F Pulse Rate 79 78 Respiratory Rate 15 20 Blood Pressure 148/65 H 125/61 Pulse Oximetry 95 98 Oxygen Flow Rate 0 0 Oxygen Delivery Method Room Air Oxygen Flow Rate 0 Narrative Exam Narrative: General: alert, cooperative HEENT: no gaze abnormality, + lt visual field loss/neglect, very mild let facial droop CV: regular rhythm lungs: clear Ext: no edema or jt swelling Neuro: oriented to person and rehab, calm, affect diminished/tearful, strength 5/5 bilateral UE/LE Objective Labs 11/11/22 06:03 11/11/22 06:03 Labs: Laboratory Results - last 24 hr 11/12/22 05:41 Magnesium 2.0 PFSH Medical History History of chronic urinary tract infection History of cystocele History of uterine prolapse Osteoarthritis Urinary incontinence concurrent with and due to female genital prolapse Surgical History (Updated 11/08/22 @ 00:11 by AYAAN Harry) History of hysterectomy Social History household members: none Smoking Status: Never smoker alcohol intake: current Discharge Plan Discharge Plan Patient Disposition: SNF Transfer to: [facility] Consult as needed: Dental, Hearing, Mental health, Podiatry and Vision Provider Discharge Comment: Previously normal functioning female admitted due to rt hemispheric CVA (Lt side neglect, confusion) Discharge orders & Medications Prescriptions: New atorvastatin [Lipitor] 20 mg Tablet 40 mg PO BEDTIME Qty: 30 0RF clopidogrel 75 mg Tablet 75 mg PO DAILY Qty: 30 0RF sennosides [senna] 8.6 mg Tablet 17.2 mg PO BEDTIME Qty: 60 0RF citalopram 10 mg tablet 10 mg PO DAILY Qty: 30 0RF acetaminophen 325 mg tablet 650 mg PO TID Qty: 180 0RF Continued ASPIRIN (Aspirin Low Dose) 81 mg tablet 81 mg PO DAILY 20 Days Qty: 20 0RF Rx Instructions: Stop ASA after 20 days and continue on clopidogrel long-term. Discontinued MULTIVITAMIN (Multivitamin -) 500 mg PO * UK DOSE/FREQUENCY Qty: 0 VITAMIN C - (VITAMIN C) 1,000 mg PO * UK DOSE/FREQUENCY Qty: 0 Follow up/Referrals: Whitney Geiger PA-C [Primary Care Provider] - Discharge Health Status Multidrug resistant organism: No MDRO Precautions: [place] Diet/Activity/Treatments Diet: Regular Liquid consistency: Normal/Thin Food texture: Regular Diet comment: 1:1 assist, monitor for safety, enc to self-feed Special Rehabilitation Services Reason for rehabilitation: Therapy following stroke Rehab type: Physical therapy, Occupational therapy and Speech therapy Visit Report/Discharge Packet Stand Alone Forms: Patient Portal/API Discharge Data Primary Care Provider: Whitney Geiger Quality VTE Deep Vein Thrombosis/Pulmonary Embolism Present on Admission: No
--- NOTE | 2022-11-12 11:15 | PC.NURSE ---
Addendum entered by Carie Barnes R.N. 11/12/22 13:28: [facility] Patient very upset that we had to take her iv out, and get her positioned in the wheel chair properly. Patient was crooked in the chair and cooperage shop supervisor and RN had to straighten her out before being wheeled off to [facility]. Patient confused and not happy in general. She was alert and oriented at times and could make normal conversation and then she would get angry when we tried to help her. Patient did yell in CNAs face at one point because her iv was being taken out, cooperage shop supervisor was gentle with taking iv out. Patient was anxious, she was able to get into the chair with gaitbelt and two person assist. Report called on patient to [facility]. All of patients personal items and paperwork sent with her. Original Note: Patients NIH a 3. She still has some confusion and is anxious. Patient has had two bowel movements. She is incontinent of urine and stool. Patient will be going to [facility] today at 1300. She denies pain. She complains of being thirsty and having dry lips. We have given her several drinks of water and put chap stick on her lips. Covid Swab done.
--- NOTE | 2022-11-12 11:17 | CM.DPC ---
DCP Discharge SNF Per MD, pt is medically stable to d/c to SNF today and no identified barriers to SNF. JAMES called [facility] and confirmed they can accept pt today around 1300. JAMES met bedside with pt and explained role and updated on [facility] today at 1300 and pt remains agreeable and provided with a copy of her Medicare Rights and pt has been sitting upright and nursing staff have helped pt with BSC. JAMES faxed [facility], signed med list, no scripts needed, orders, signed d/c summary to [facility] to review. RN kindly getting updated COVID swab now. JAMES updated international trade teacher and [facility]. Plan: Patient to d/c to [facility] via facility van around 1300 before safe return home with very supportive local friends. MARLENI Kumar
[2022-11-12 11:47] LABS: COVID19 -Nasal RAPID Negative (Negative)
[2022-11-12 12:00] VITALS: BP 109/58; PULSE 73; RESP 12; TEMP 36.6; O2SAT 98
== END 2022-11-12 13:00 | DRG 64 ==
LOC: ED 20:05 → AC 20:15 → ICU 11-08 15:45 → AC 11-10 12:32
PROVIDERS: Internal Medicine; Admitting Provider Nurse Practitioner Family; Emergency Provider Emergency Medicine; Family Provider Physician Assistant Medical; PCP Physician Assistant Medical; Referring Provider Emergency Medicine; Visit Provider Nurse Practitioner Family
DX: I63.9 Cerebral infarction, unspecified (principal); G93.41 Metabolic encephalopathy; E44.1 Mild protein-calorie malnutrition; M62.82 Rhabdomyolysis; M17.12 Unilateral primary osteoarthritis, left knee; R29.703 NIHSS score 3; R29.701 NIHSS score 1; Z20.822 Contact with and (suspected) exposure to COVID-19; Z68.20 Body mass index [BMI] 20.0-20.9, adult
CPT/HCPCS: 36415; 51798; 70450; 70496; 70498; 70551; 71045; 73560; 80048; 80053; 80061; 81001; 82550; 83036; 83605; 83690; 83735; 83880; 84145; 84443; 84484; 85025; 85610; 85730; 87040; 87086; 87635; 87797; 92526; 92610; 93005; 93306; 96365; 96366; 97110; 97162; 97167; 97530; 99285; C9803; J0696; J1650; J2060; Q9967

== ENCOUNTER → 2022-12-06 11:23 | Outpatient (ROUT) | payer MEDICARE, SELFPAY ==
[2022-11-08 15:57] VITALS: BMI 20.7
[2022-12-06 12:19] LABS: Clostridium Difficile Tox PCR Negative for C. diff (Negative)
== END ==
PROVIDERS: Family Provider Physician Assistant Medical; PCP Physician Assistant Medical; Visit Provider Physician Assistant Medical
DX: A04.72 Enterocolitis due to Clostridium difficile, not specified as recurrent (principal)
CPT/HCPCS: 87493